=== PATIENT | female | born 1960 | race Caucasian/White ===

== ENCOUNTER 2021-10-28 17:17 | Emergency (ER) | payer MEDICARE, SELFPAY ==
[2021-10-28] VITALS (12 sets, daily range): BP systolic 105–144; BP diastolic 65–89; PULSE 79–87; RESP 17–31; TEMP 36.5; O2SAT 81–99
--- NOTE | 2021-10-28 17:28 | DI.RAD.S_ITS ---
PROCEDURE: XR CHEST 1V INDICATIONS: wheeze, shortness of breath TECHNIQUE: One view of the chest was acquired. COMPARISON: [facility], CT, CT ANGIO CHEST PE, 10/27/2021, 14:57. [facility], CR, XR CHEST 1 VIEW, 10/27/2021, 11:45. FINDINGS: Surgical changes and devices: Lower cervical spine postsurgical change. Lungs and pleura: There is a calcified granuloma in the right upper lung zone. Lingular scars and atelectasis. Lungs are otherwise clear. No pleural effusions or pneumothorax. Mediastinum: Mediastinal contours appear normal. Heart size is normal. Bones and chest wall: No suspicious bony lesions. Overlying soft tissues appear unremarkable. IMPRESSION: No acute cardiopulmonary disease. Dictated by: Scotty Wells M.D. on 10/28/2021 at 18:11 Approved by: Scotty Wells M.D. on 10/28/2021 at 18:12
[2021-10-28] MEDS: ALBUTEROL HFA MDI 60 PUFF/8 GM INHALER 8 PUFF INH (17:41)
[2021-10-28] MEDS: SODIUM CHLORIDE 0.9% 1,000 ML 150 ML IV (17:47)
[2021-10-28] MEDS: methylPREDNISolone 125 MG/2 ML VIAL IV (17:47)
[2021-10-28 17:58] LABS: Add Manual Diff / Slide Review NO; Basophils Absolute Auto 100 /uL (0-100); Basophils Percent Auto 0.5 % (0-2); Eosinophils Absolute Auto 300 /uL (0-450); Eosinophils Percent Auto 1.7 % (2-4); Hematocrit 39.2 % (36-46); Lymphocytes Absolute Auto 1400 /uL (1100-4500); Lymphocytes Percent Auto 9.4 % (25-40); Mean Corpuscular HGB Conc 33.1 % (30-36); Mean Corpuscular Volume 87.6 fL (80-100); Monocytes Absolute Auto 1000 /uL (0-900); Monocytes Percent Auto 6.6 % (3-14); Neutrophils Absolute Auto 12200 /uL (1500-7000); Neutrophils Percent Auto 81.8 % (50-75); Platelet Count 295 X10^3/uL (150-400); Red Blood Cell Count 4.48 X10^6/uL (4.0-5.2); Red Cell Distribution Width 15.1 % (11.6-14.8); White Blood Cell Count 14.9 X10^3/uL (4.5-11.0)
[2021-10-28 18:07] LABS: Alanine Aminotransferase 18 IU/L (<35); Albumin 4.2 g/dL (3.5-5.0); Albumin Globulin Ratio 1.1 (1.0-2.8); Alkaline Phosphatase 98 U/L (38-126); Aspartate Aminotransferase 21 IU/L (14-36); BUN Creatinine Ratio 15.3 (6-22); Bilirubin Total 0.5 mg/dL (0.2-1.3); Blood Urea Nitrogen 13 mg/dL (7-17); Calcium 8.9 mg/dL (8.4-10.2); Carbon Dioxide 26 mmol/L (22-32); Chloride 102 mmol/L (98-107); Creatine Kinase 74 U/L (30-135); Estimated Glomerular Filt Rate > 60 mL/min (>60); Globulin 3.7 g/dL (1.7-4.1); Glucose 141 mg/dL (80-110); HEMOLYSIS < 15 (0-50); Lipase 28 U/L (23-300); Sodium 137 mmol/L (137-145); Total Protein 7.9 g/dL (6.3-8.2)
[2021-10-28 18:19] LABS: NT-proBNP (BNP-Adult 18+) 230 pg/mL (<125); Troponin I < 0.012 ng/mL (0.01-0.034)
--- NOTE | 2021-10-28 18:35 | ED.CHESTPAIN ---
HPI - Chest Pain General Chief Complaint: Chest Pain Stated Complaint: chest pain since tuesday Time Seen by Provider: 10/28/21 17:28 Source: patient Mode of arrival: Wheelchair History of Present Illness HPI narrative: 61-year-old female daily smoker with history of hypothyroid presents for evaluation of anterior chest cramping and wheezing. She has been having relatively similar symptoms off and on since at least . She has had significant workups including stress testing, CT scans and lab workups. She has been seen as recently as yesterday at [facility] had a thorough workup including labs and even a CT scan (working on getting these records currently). She states that she has no clear provocation or palliation of these episodes of cramping that seemed to start in 1 shoulder or the other and then at times radiate across her chest and seem to be associated with difficulty breathing. She has been relatively responsive to steroids and has a referral to Rheumatology tomorrow. Family states there has been some question about the potential of a thrombocytopenia secondary to the Saravanan Saravanan vaccine which she had received prior to all this. She currently is experiencing some improved symptoms when she lays on her left side but not having much in the way of pain and has no fever or chills. She has had no runny nose, sore throat but does have occasional wheezy type cough that sometimes is improved with bronchodilators. Related Data Home Medications Medication Instructions Recorded Confirmed aspirin 81 mg tablet,delayed 81 mg PO DAILY 09/29/18 09/29/18 release cyclobenzaprine 10 mg tablet 10 mg PO BEDTIME 09/29/18 09/29/18 duloxetine 60 mg capsule,delayed 60 mg PO DAILY 09/29/18 09/29/18 release (Cymbalta) levothyroxine 25 mcg tablet 25 mcg PO DAILY 09/29/18 09/29/18 (Synthroid) tizanidine 4 mg tablet 4 mg PO Q6-8H PRN 09/29/18 09/29/18 Previous Rx's Medication Instructions Recorded colchicine 0.6 mg tablet 0.6 mg PO BID #60 tab 10/28/21 indomethacin 25 mg capsule See Rx Instructions .ROUTE 10/28/21 .COMPLEX #91 cap Allergies Allergy/AdvReac Type Severity Reaction Status Date / Time No Known Drug Allergies Allergy Verified 10/28/21 17:38 Review of Systems Review of Systems Narrative: GENERAL: See HPI HEENT: Denies sinus pain, ear pain, sore throat, difficulty swallowing, dizziness. RESPIRATORY: See HPI CARDIOVASCULAR: See HPI GASTROINTESTINAL: Denies nausea, vomiting, abdominal pain, diarrhea, constipation, melena. : Denies dysuria, frequency, incontinence, hematuria, urinary retention. MUSCULOSKELETAL: denies weakness, joint pain, or bony pain SKIN: Denies rash, skin lesions, or other NEUROLOGIC: Denies weakness, headache, numbness, change in speech, confusion, seizures, incoordination. PSYCHIATRIC: No concerning psychosocial issues. 12 point review of systems is negative except for those stated above Patient History Social History Smoking Status: Current every day smoker Smoking Status: Current every day smoker alcohol intake frequency: other Substance Use Type: does not use Exam Narrative Exam Narrative: GENERAL: [] year old patient appears stated age. Well-developed patient, in mild distress. HEAD: Atraumatic. Normocephalic. EYES: Pupils equal round and reactive. Extraocular motions intact. No scleral icterus. No injection or drainage. ENT: Nose without bleeding, purulent drainage. Throat without erythema, tonsillar hypertrophy or exudate. Airway patent. NECK: Trachea midline. Non tender CARDIOVASCULAR: Regular rate and rhythm without murmurs, gallops, or rubs. RESPIRATORY: Clear to auscultation. Breath sounds equal bilaterally. No wheezes, rales, or rhonchi. GASTROINTESTINAL: Abdomen soft, non-tender, nondistended. EXTREMITIES: No edema or joint tenderness. BACK: Nontender without deformity or crepitance. No flank tenderness. NEURO: AOx3. SKIN: No rash or erythema of visible areas Initial Vital Signs Initial Vital Signs: Vital Signs Temperature 97.7 F 10/28/21 17:28 Pulse Rate 86 10/28/21 17:28 Respiratory Rate 17 10/28/21 17:28 Blood Pressure 114/67 10/28/21 17:28 Pulse Oximetry 98 10/28/21 17:28 Course Orders Ordered: ED Orders 10/28/21 17:45 CRP [C-Reactive Protein Quant] Stat Complete Blood Count AUTO DIFF Stat Comprehensive Metabolic Panel Stat ESR [Erythrocyte Sedimentation Rate] Stat Lipase Stat NT-proBNP (BNP-Adult 18+) Stat Troponin & CK Cardiac Panel Stat 10/28/21 17:47 D Dimer Stat Procalcitonin Stat 10/28/21 18:37 EKG-12 Lead Stat 10/28/21 19:20 COVID19 -Nasal RAPID/Pre-Proc Stat Discontinued Medications Albuterol (Albuterol Hfa Mdi 60 Puff/8 Gm Inhaler) 8 puff INH NOW ONE Stop: 10/28/21 17:29 Last Admin: 10/28/21 17:41 Dose: 8 puff Documented by: EBONI Albuterol/Ipratropium (Albuterol/Ipratropium 3 Ml Ampul) 3 ml INH NOW ONE Stop: 10/28/21 17:29 Last Admin: 10/28/21 18:57 Dose: 3 ml Documented by: EBONI Colchicine (Colchicine 0.6 Mg Tablet) 0.6 mg PO NOW ONE Stop: 10/28/21 19:15 Last Admin: 10/28/21 20:03 Dose: 0.6 mg Documented by: [email or web address] Sodium Chloride (Normal Saline 0.9%) 1,000 mls @ 150 mls/hr IV CONT BONNIE Last Admin: 10/28/21 17:47 Dose: 150 mls/hr Documented by: JULIANA Indomethacin (Indomethacin 25 Mg Capsule) 50 mg PO NOW ONE Stop: 10/28/21 19:15 Last Admin: 10/28/21 20:03 Dose: 50 mg Documented by: [email or web address] Methylprednisolone (Methylprednisolone 125 Mg/2 Ml Vial) 125 mg IV NOW ONE Stop: 10/28/21 17:29 Last Admin: 10/28/21 17:47 Dose: 125 mg Documented by: JULIANA Consultations Consultation #1: Discussed case with on-call Cardiology at [facility] ([facility]). We discussed multiple visits, labs, imaging and provocative testing dating back to April. The big picture suggests the evolution of a [id number] pericardial effusion over the past few months as it was not noted on prior echo or CT scan but in a CT scan obtained yesterday at an outside facility it was noted. Additionally the very subtle MO depressions on EKG and historical response to steroids with suggest strongly the diagnosis of pericarditis is our primary focus. Patient will need a 1 month taper of indomethacin and at least 3 months of colchicine 0.6 mg p.o. b.i.d. without any alteration in dosing. Vital Signs Vital signs: Vital Signs - 8 hr 10/28/21 18:57 10/28/21 19:00 10/28/21 19:01 Pulse Rate 80 79 79 Respiratory Rate 20 23 26 H Blood Pressure 130/68 Pulse Oximetry 97 95 95 10/28/21 19:30 10/28/21 20:00 10/28/21 20:15 Pulse Rate 85 87 80 Respiratory Rate 30 H 29 H 23 Blood Pressure 138/78 142/89 H 144/78 H Pulse Oximetry 94 95 94 MDM - Chest Pain Lab Data Result diagrams: 10/28/21 17:45 10/28/21 17:45 Labs: Lab Results 10/28/21 10/28/21 10/28/21 Range/Units 17:45 17:45 17:45 WBC 14.9 H (4.5-11.0) X10^3/uL RBC 4.48 (4.0-5.2) X10^6/uL Hgb 13.0 (12.0-16.0) g/dL Hct 39.2 (36-46) % MCV 87.6 (80-100) fL MCH 29.0 (26-34) PG MCHC 33.1 (30-36) % RDW 15.1 H (11.6-14.8) % Plt Count 295 (150-400) X10^3/uL Neut % (Auto) 81.8 H (50-75) % Lymph % (Auto) 9.4 L (25-40) % [place] % (Auto) 6.6 (3-14) % Eos % (Auto) 1.7 L (2-4) % Baso % (Auto) 0.5 (0-2) % Neut # (Auto) 40364 H (5174-7457) /uL Lymph # (Auto) 1400 (0893-4138) /uL [place] # (Auto) 1000 H (0-900) /uL Eos # (Auto) 300 (0-450) /uL Baso # (Auto) 100 (0-100) /uL ESR 57 H (0-20) MM/HR D-Dimer (<230) ng/mL Sodium 137 (137-145) mmol/L Potassium 4.0 (3.4-5.1) mmol/L Chloride 102 (98-107) mmol/L Carbon Dioxide 26 (22-32) mmol/L BUN 13 (7-17) mg/dL Creatinine 0.85 (0.52-1.04) mg/dL Estimated GFR > 60 (>60) mL/min BUN/Creatinine Ratio 15.3 (6-22) Glucose 141 H (80-110) mg/dL Calcium 8.9 (8.4-10.2) mg/dL Total Bilirubin 0.5 (0.2-1.3) mg/dL AST 21 (14-36) IU/L ALT 18 (<35) IU/L Alkaline Phosphatase 98 (38-126) U/L Total Creatine Kinase 74 (30-135) U/L CK-MB (CK-2) TNP CK-MB (CK-2) Rel Index TNP Troponin I < 0.012 (0.01-0.034) ng/mL C-Reactive Protein (<1.0) mg/dL NT-Pro-B Natriuret Pep 230 H (<125) pg/mL Total Protein 7.9 (6.3-8.2) g/dL Albumin 4.2 (3.5-5.0) g/dL Globulin 3.7 (1.7-4.1) g/dL Albumin/Globulin Ratio 1.1 (1.0-2.8) Lipase 28 (23-300) U/L Procalcitonin (<0.5) ng/mL SARS-CoV-2 (PCR) (Negative) 10/28/21 10/28/21 10/28/21 Range/Units 17:45 17:47 17:47 WBC (4.5-11.0) X10^3/uL RBC (4.0-5.2) X10^6/uL Hgb (12.0-16.0) g/dL Hct (36-46) % MCV (80-100) fL MCH (26-34) PG MCHC (30-36) % RDW (11.6-14.8) % Plt Count (150-400) X10^3/uL Neut % (Auto) (50-75) % Lymph % (Auto) (25-40) % [place] % (Auto) (3-14) % Eos % (Auto) (2-4) % Baso % (Auto) (0-2) % Neut # (Auto) (0287-0579) /uL Lymph # (Auto) (6205-6214) /uL Socorro # (Auto) (0-900) /uL Eos # (Auto) (0-450) /uL Baso # (Auto) (0-100) /uL ESR (0-20) MM/HR D-Dimer 900 H (<230) ng/mL Sodium (137-145) mmol/L Potassium (3.4-5.1) mmol/L Chloride (98-107) mmol/L Carbon Dioxide (22-32) mmol/L BUN (7-17) mg/dL Creatinine (0.52-1.04) mg/dL Estimated GFR (>60) mL/min BUN/Creatinine Ratio (6-22) Glucose (80-110) mg/dL Calcium (8.4-10.2) mg/dL Total Bilirubin (0.2-1.3) mg/dL AST (14-36) IU/L ALT (<35) IU/L Alkaline Phosphatase (38-126) U/L Total Creatine Kinase (30-135) U/L CK-MB (CK-2) CK-MB (CK-2) Rel Index Troponin I (0.01-0.034) ng/mL C-Reactive Protein 17.3 H (<1.0) mg/dL NT-Pro-B Natriuret Pep (<125) pg/mL Total Protein (6.3-8.2) g/dL Albumin (3.5-5.0) g/dL Globulin (1.7-4.1) g/dL Albumin/Globulin Ratio (1.0-2.8) Lipase (23-300) U/L Procalcitonin 0.07 (<0.5) ng/mL SARS-CoV-2 (PCR) (Negative) 10/28/21 Range/Units 19:20 WBC (4.5-11.0) X10^3/uL RBC (4.0-5.2) X10^6/uL Hgb (12.0-16.0) g/dL Hct (36-46) % MCV (80-100) fL MCH (26-34) PG MCHC (30-36) % RDW (11.6-14.8) % Plt Count (150-400) X10^3/uL Neut % (Auto) (50-75) % Lymph % (Auto) (25-40) % [place] % (Auto) (3-14) % Eos % (Auto) (2-4) % Baso % (Auto) (0-2) % Neut # (Auto) (0317-6874) /uL Lymph # (Auto) (5318-9146) /uL [place] # (Auto) (0-900) /uL Eos # (Auto) (0-450) /uL Baso # (Auto) (0-100) /uL ESR (0-20) MM/HR D-Dimer (<230) ng/mL Sodium (137-145) mmol/L Potassium (3.4-5.1) mmol/L Chloride (98-107) mmol/L Carbon Dioxide (22-32) mmol/L BUN (7-17) mg/dL Creatinine (0.52-1.04) mg/dL Estimated GFR (>60) mL/min BUN/Creatinine Ratio (6-22) Glucose (80-110) mg/dL Calcium (8.4-10.2) mg/dL Total Bilirubin (0.2-1.3) mg/dL AST (14-36) IU/L ALT (<35) IU/L Alkaline Phosphatase (38-126) U/L Total Creatine Kinase (30-135) U/L CK-MB (CK-2) CK-MB (CK-2) Rel Index Troponin I (0.01-0.034) ng/mL C-Reactive Protein (<1.0) mg/dL NT-Pro-B Natriuret Pep (<125) pg/mL Total Protein (6.3-8.2) g/dL Albumin (3.5-5.0) g/dL Globulin (1.7-4.1) g/dL Albumin/Globulin Ratio (1.0-2.8) Lipase (23-300) U/L Procalcitonin (<0.5) ng/mL SARS-CoV-2 (PCR) Negative (Negative) [facility] Narrative Medical decision making narrative: Patient presents with waxing and waning episodes of atypical chest pain and associated shortness of breath over the past few months. She has had multiple visits, CT scans, echocardiogram, stress test without a working diagnosis at this point time. She reports that traditionally she does well after a burst or slow taper of steroids but is currently not taking them due to an appointment tomorrow with rheumatology. As noted above, her clinical course would highly suggest pericarditis should be of focus and patient will need long-term treatment of indomethacin and colchicine with appropriate follow-up with primary care and Cardiology. Extensive return precautions discussed and questions answered to her apparent satisfaction Discharge Plan Departure Patient Disposition: Home Clinical Impression: Pericarditis Instructions: DI for Pericarditis Activity Restrictions/Additional Instructions: *You have been diagnosed with [pericarditis, which is an inflammatory condition involving a sac that surrounds your heart. Otherwise, your history physical exam, labs, imaging and EKGs are very reassuring and there is no evidence of heart attack, abnormal platelet count (thrombocytopenia), blood clot or other *What to do: *Please continue to take your regular medications as directed. [x ] New medication prescriptions sent to your pharmacy: [[facility] in [place] ] [ ] New medication written as a paper prescription [ ] No new medications given *Please follow up with your primary care provider in 2-3 days, call for an appointment. Let them know you were seen in the Emergency Department and that we ask that you be seen in follow up. We will electronically transmit a record of today's note if your PCP is in our system * as we discussed the treatment for pericarditis takes many months, I will write 1 month worth of these medications, but keep in mind he will need to be on colchicine for at least 3 months straight without any alteration in dosing or tapering. We generally do not write long-term prescriptions out of the emergency department but I want to cover you for least 1 month to allow for your primary care provider to become involved *If you do not have a primary care provider please contact the [facility] Resource line at [phone]. They will ask some questions about your medical history and help get you set up with a doctor in the community. *Return to Emergency Department if you should have any new, worsening or concerning symptoms, such as [fever greater than 101 F, shaking chills, worsening pain, persistent vomiting or other bothersome symptoms] Prescriptions: New indomethacin 25 mg capsule See Rx Instructions .ROUTE .COMPLEX Qty: 91 0RF Rx Instructions: 50mg PO TID x7, then 50mg PO BID x7, then 25mg PO BID x7 days, then 25mg PO daily x7 #91 colchicine 0.6 mg tablet 0.6 mg PO BID Qty: 60 0RF No Action cyclobenzaprine 10 mg tablet 10 mg PO BEDTIME 0RF tizanidine 4 mg tablet 4 mg PO Q6-8H PRN0RF aspirin 81 mg tablet,delayed release (DR/EC) 81 mg PO DAILY 0RF levothyroxine [Synthroid] 25 mcg tablet 25 mcg PO DAILY 0RF duloxetine [Cymbalta] 60 mg capsule,delayed release(DR/EC) 60 mg PO DAILY 0RF Referrals: Daquan Andersen MD [Primary Care Provider] - Visit Report Forms: Patient Portal/API
[2021-10-28 18:47] LABS: D Dimer 900 ng/mL (<230)
[2021-10-28] MEDS: ALBUTEROL/IPRATROPIUM 3 ML AMPUL INH (18:57)
[2021-10-28 19:05] LABS: Procalcitonin 0.07 ng/mL (<0.5)
[2021-10-28 19:23] LABS: Erythrocyte Sedimentation Rate 57 MM/HR (0-20)
[2021-10-28 19:29] LABS: C-Reactive Protein Quant 17.3 mg/dL (<1.0)
[2021-10-28] MEDS: COLCHICINE 0.6 MG TABLET PO (20:03)
[2021-10-28] MEDS: INDOMETHACIN 25 MG CAPSULE 50 MG PO (20:03)
[2021-10-28 20:38] LABS: COVID19 -Nasal RAPID Negative (Negative)
== END 2021-10-28 20:16 | disposition home or self-care (01) ==
PROVIDERS: Emergency Medicine; Emergency Provider Emergency Medicine; PCP Family Medicine
DX: I31.9 Disease of pericardium, unspecified (principal); Z20.822 Contact with and (suspected) exposure to COVID-19; R94.31 Abnormal electrocardiogram [ECG] [EKG]
CPT/HCPCS: 71045; 80053; 82550; 83690; 83880; 84145; 84484; 85025; 85379; 85651; 86140; 87635; 93005; 93010; 94640; 96374; 99284; C9803; A9270; J2930

== ENCOUNTER → 2021-11-10 15:54 | Outpatient (CLI) | payer MEDICARE, SELFPAY ==
[2021-11-10 17:13] LABS: Add Manual Diff / Slide Review NO; Basophils Absolute Auto 100 /uL (0-100); Basophils Percent Auto 0.8 % (0-2); Eosinophils Absolute Auto 300 /uL (0-450); Hematocrit 37.9 % (36-46); Hemoglobin 12.8 g/dL (12.0-16.0); Lymphocytes Absolute Auto 2100 /uL (1100-4500); Lymphocytes Percent Auto 34.7 % (25-40); Mean Corpuscular HGB Conc 33.7 % (30-36); Monocytes Absolute Auto 400 /uL (0-900); Monocytes Percent Auto 5.7 % (3-14); Neutrophils Absolute Auto 3300 /uL (1500-7000); Neutrophils Percent Auto 53.8 % (50-75); Platelet Count 409 X10^3/uL (150-400); Red Blood Cell Count 4.41 X10^6/uL (4.0-5.2); Red Cell Distribution Width 15.6 % (11.6-14.8); White Blood Cell Count 6.2 X10^3/uL (4.5-11.0)
[2021-11-10 17:37] LABS: D Dimer < 200 ng/mL (<230)
[2021-11-10 17:51] LABS: Alanine Aminotransferase 33 IU/L (<35); Albumin 4.3 g/dL (3.5-5.0); Albumin Globulin Ratio 1.5 (1.0-2.8); Alkaline Phosphatase 94 U/L (38-126); Aspartate Aminotransferase 41 IU/L (14-36); BUN Creatinine Ratio 13.5 (6-22); Bilirubin Total 0.4 mg/dL (0.2-1.3); Blood Urea Nitrogen 12 mg/dL (7-17); C-Reactive Protein Quant < 0.5 mg/dL (<1.0); Calcium 9.1 mg/dL (8.4-10.2); Carbon Dioxide 27 mmol/L (22-32); Chloride 102 mmol/L (98-107); Cholesterol 232 mg/dL (140-199); Creatine Kinase 165 U/L (30-135); Estimated Glomerular Filt Rate > 60 mL/min (>60); Globulin 2.9 g/dL (1.7-4.1); Glucose 116 mg/dL (80-110); HDL Cholesterol 48 mg/dL (40-60); HEMOLYSIS < 15 (0-50); LDL Cholesterol Calculated 158 mg/dL (<100); Potassium 3.7 mmol/L (3.4-5.1); Sodium 140 mmol/L (137-145); Total Protein 7.2 g/dL (6.3-8.2); Triglycerides 130 mg/dL (35-150)
[2021-11-10 18:12] LABS: Erythrocyte Sedimentation Rate 18 MM/HR (0-20)
[2021-11-10 18:21] LABS: TSH w/ Reflex to FT4 1.85 uIU/mL (0.47-4.68)
== END ==
PROVIDERS: PCP Pediatrics; Referring Provider Pediatrics; Visit Provider Pediatrics
DX: I31.9 Disease of pericardium, unspecified (principal); I10 Essential (primary) hypertension; Z13.220 Encounter for screening for lipoid disorders; R06.2 Wheezing; Z72.0 Tobacco use
CPT/HCPCS: 36415; 80053; 80061; 82550; 84443; 85025; 85379; 85651; 86140

== ENCOUNTER → 2021-11-16 16:41 | Outpatient (CLI) | payer MEDICARE, SELFPAY ==
[2021-11-16 17:36] LABS: Creatine Kinase 73 U/L (30-135)
[2021-11-16 17:45] LABS: NT-proBNP (BNP-Adult 18+) 207 pg/mL (<125); Troponin I < 0.012 ng/mL (0.01-0.034)
== END ==
PROVIDERS: PCP Pediatrics; Referring Provider Pediatrics; Visit Provider Pediatrics
DX: R06.00 Dyspnea, unspecified (principal); R74.8 Abnormal levels of other serum enzymes
CPT/HCPCS: 36415; 82550; 83880; 84484

== ENCOUNTER → 2021-11-16 16:55 | Outpatient (CLI) | payer MEDICARE, SELFPAY ==
--- NOTE | 2021-11-16 16:58 | DI.RAD.S_ITS ---
PROCEDURE: XR CHEST 2V INDICATIONS: cough, tobacco use TECHNIQUE: 2 views of the chest were acquired. COMPARISON: [facility], CR, XR CHEST 1 VIEW, 07/21/2021, 14:21. [facility], CR, XR CHEST 1 VIEW, 10/27/2021, 11:45. [facility], CR, XR CHEST 1V, 10/28/2021, 17:36. FINDINGS: Surgical changes and devices: Cervical spine fixation hardware. Lungs and pleura: No acute lung opacities. Scarring in the lingula of left upper lobe is stable. No pleural effusions or pneumothorax. Small calcified granuloma in the periphery of the right lung is stable. Mediastinum: Mediastinal contours are normal. Heart size is normal. Bones and chest wall: No suspicious bony abnormalities. Soft tissues appear unremarkable. IMPRESSION: No acute cardiopulmonary disease process. Dictated by: Domi Dover MD, PhD on 11/17/2021 at 12:40 Approved by: Domi Dover MD, PhD on 11/17/2021 at 12:40
== END ==
PROVIDERS: PCP Pediatrics; Referring Provider Pediatrics; Visit Provider Pediatrics
DX: R06.2 Wheezing (principal); R06.00 Dyspnea, unspecified; R74.8 Abnormal levels of other serum enzymes; Z72.0 Tobacco use
CPT/HCPCS: 36415; 71046; 82550; 83880; 84484; 93005

== ENCOUNTER 2021-11-30 00:27 | Emergency (ER) | payer MEDICARE, SELFPAY ==
[2021-11-30 00:39] VITALS: BP 134/79; PULSE 89; RESP 24; TEMP 36.6; O2SAT 100
[2021-11-30 00:44] LABS: Appearance Urine UA SL CLOUDY; Bilirubin Urine UA NEGATIVE (NEGATIVE); Color Urine UA YELLOW; Glucose Urine UA NEGATIVE (Negative); Ketones Urine UA NEGATIVE (NEGATIVE); Leukocyte Esterase Urine UA NEGATIVE (NEGATIVE); Nitrite Urine UA NEGATIVE (Negative); Occult Blood Urine UA 3+ (Negative); Protein Urine UA TRACE (Negative); Specific Gravity Urine UA 1.025 (1.000-1.035); Urobilinogen Urine UA 0.2 E.U./dL (0.2)
[2021-11-30] MEDS: MORPHINE 4 MG/ML INJ IV (00:44)
--- NOTE | 2021-11-30 00:44 | DI.CT.S_ITS ---
PROCEDURE: CT KIDNEY URETER BLADDER (KUB) INDICATIONS: L flank pain eval for stone TECHNIQUE: Axial sections were acquired from the lung bases to the pubic symphysis. Coronal and sagittal reformats were performed. For radiation dose reduction, the following was used: automated exposure control, adjustment of mA and/or kV according to patient size. COMPARISON: [facility], CT, CT ABDOMEN PELVIS WITH CONTRAST, 04/18/2021, 18:07. FINDINGS: Image quality: Excellent. Lung bases: There is minimal atelectasis. Heart: Heart is normal in size. URINARY: Right Kidney and Ureter: No stones or hydronephrosis. No hydroureter. Left Kidney and Ureter: There is a small 1-2 mm stone within the distal left ureter just proximal to the ureterovesicular junction. There is associated mild left hydroureteronephrosis with mild perinephric stranding. No additional renal stones identified. Bladder: The bladder is nondistended. No stones. ABDOMEN: Liver: Noncontrast evaluation of the liver demonstrates no discrete mass. Gallbladder: Within normal limits without calcified gallstones. Biliary ducts: No biliary ductal dilatation. Pancreas: Unremarkable. Spleen: Normal in size. Adrenal Glands: No adrenal nodules. Stomach and Bowel: Stomach and small bowel loops are normal in caliber and wall thickness. The appendix is normal in appearance. Colonic diverticulosis is present without acute diverticulitis. There is mild segmental wall thickening in the sigmoid colon suggesting sequelae of a mild colitis. Peritoneum: No abnormal intraperitoneal fluid. No free air. Ventral Wall: No hernia. Abdominal Nodes: No retroperitoneal or mesenteric adenopathy by size criteria. Vessels: Aorta and inferior vena cava are normal in size. PELVIS: Pelvic Organs: Unremarkable. Pelvic Nodes: No enlarged lymph nodes. Miscellaneous: No inguinal hernias identified. Bones: Visualized osseous structures demonstrate no suspicious focal lesions. IMPRESSION: 1. Small distal left ureteral stone with mild left hydroureteronephrosis. 2. Colonic diverticulosis without acute diverticulitis. 3. Mild segmental wall thickening in the sigmoid colon suggestive of a mild colitis. Dictated by: Thad Goss M.D. on 11/30/2021 at 1:21 Approved by: Thad Goss M.D. on 11/30/2021 at 1:40
--- NOTE | 2021-11-30 00:45 | ED_ITS ---
HPI - General Adult General Chief complaint: Abdominal Pain Stated complaint: left kidney pain Time Seen by Provider: 11/30/21 00:31 Source: patient Mode of arrival: Ambulatory History of Present Illness HPI narrative: Patient is a 61-year-old female who is here for evaluation of left-sided flank pain that radiates around to her left lower abdomen. Symptoms started a couple days ago. He has had a kidney stone in the past but it was on the right side and that was many years ago. She is not had any vomiting. No fevers. She states that she is having some dysuria and frequency. Related Data Home Medications Medication Instructions Recorded Confirmed aspirin 81 mg tablet,delayed 81 mg PO DAILY 09/29/18 11/10/21 release Lactobacillus acidophilus PO 11/10/21 11/10/21 [Acidophilus] albuterol sulfate 90 mcg/actuation 2 puff inhalation Q4-6H PRN 11/10/21 11/10/21 aerosol inhaler chlorzoxazone 500 mg tablet 500 mg PO TID 11/10/21 11/10/21 escitalopram oxalate 20 mg tablet 20 mg PO DAILY 11/10/21 11/10/21 hydrocodone 5 mg-acetaminophen 325 1 tab PO Q8H 11/10/21 11/10/21 mg tablet ibuprofen 200 mg tablet 200 mg PO Q6H PRN 11/10/21 11/10/21 levothyroxine 125 mcg tablet 125 mcg PO DAILY 11/10/21 11/10/21 (Synthroid) loratadine 10 mg tablet (Claritin) 10 mg PO DAILY 11/10/21 11/10/21 multivitamin 1 tab PO DAILY 11/10/21 11/10/21 nitroglycerin 0.4 mg sublingual 0.4 mg sublingual 11/10/21 11/10/21 tablet soy isoflavone-black cohosh cap PO 11/10/21 11/10/21 root-magnolia bark 155 mg capsule (Estroven) Previous Rx's Medication Instructions Recorded colchicine 0.6 mg tablet 0.6 mg PO BID #60 tabs 10/28/21 indomethacin 25 mg capsule See Rx Instructions .Route 10/28/21 .COMPLEX #91 caps amoxicillin 500 mg-potassium 1 tab PO BID presumed bronchitis 11/10/21 clavulanate 125 mg tablet #20 tabs (Augmentin) prednisone 10 mg tablet 20 mg PO DAILY wheezing/airway 11/16/21 spasm #30 tabs hydrocodone 5 mg-acetaminophen 325 1 tab PO Q6H PRN pain #7 tabs 11/30/21 mg tablet ondansetron 4 mg disintegrating 4 mg PO Q6H PRN nausea and 11/30/21 tablet vomiting #7 tabs Allergies Allergy/AdvReac Type Severity Reaction Status Date / Time No Known Drug Allergies Allergy Verified 11/10/21 14:18 Review of Systems Constitutional Constitutional: Reports system reviewed and no additional complaints, except as documented Gastrointestinal Gastrointestinal: Reports system reviewed and no additional complaints, except as documented Genitourinary Genitourinary: Reports system reviewed and no additional complaints, except as documented Integumentary/Breasts Skin/Breast: Reports system reviewed and no additional complaints, except as documented Patient History Medical History CARRIZALES (dyspnea on exertion) Elevated CK Tobacco use Wheezing Social History Smoking Status: Current every day smoker Tobacco: How many years used: 40 alcohol intake: current (couple drinks per month ) substance use type: marijuana (Daily ) Smoking Status: Current every day smoker alcohol intake frequency: other Substance Use Type: does not use Exam Initial Vital Signs Initial Vital Signs: Vital Signs Temperature 97.8 F 11/30/21 00:39 Pulse Rate 89 11/30/21 00:39 Respiratory Rate 24 11/30/21 00:39 Blood Pressure 134/79 11/30/21 00:39 Pulse Oximetry 100 11/30/21 00:39 Oxygen Delivery Method 11/30/21 00:39 Const General: cooperative and healthy appearing Resp Effort & Inspection: normal respiratory effort Cardio Rate: regular rate GI Palpation: soft and No tender Skin General: no rashes or lesions noted Neuro General: patient alert, patient awake and moves all extremities Extrem General: normal to inspection and capillary refill normal Course Orders Ordered: ED Orders 11/30/21 00:35 Urinalysis and Microscopic Stat Urine Culture Stat 11/30/21 00:40 Basic Metabolic Panel Stat Complete Blood Count AUTO DIFF Stat 11/30/21 00:44 CT kidney ureter bladder (KUB) Stat Discontinued Medications Hydrocodone Bitart/Acetaminophen (Hydrocodone/Acet 5/325 Prepack) 1 bottle MISC SEEINSTR ONE Stop: 11/30/21 01:50 Last Admin: 11/30/21 01:55 Dose: 1 bottle Documented By: DANYA Morphine Sulfate (Morphine 4 Mg/Ml Inj) 4 mg IV NOW ONE Stop: 11/30/21 00:40 Last Admin: 11/30/21 00:44 Dose: 4 mg Documented By: DANYA Ondansetron HCl (Ondansetron 4 Mg Odt Prepack) 1 bottle MISC SEEINSTR ONE Stop: 11/30/21 01:50 Last Admin: 11/30/21 01:55 Dose: 1 bottle Documented By: DANYA Vital Signs Vital signs: Vital Signs - 8 hr 11/30/21 00:39 Temperature 97.8 F Pulse Rate 89 Respiratory Rate 24 Blood Pressure 134/79 Pulse Oximetry 100 Oxygen Delivery Method Room Air Medical Decision Making Lab Data Lab results reviewed: Yes I reviewed the patient's lab results. Result diagrams: 11/30/21 00:40 11/30/21 00:40 Labs: Lab Results 11/30/21 11/30/21 11/30/21 Range/Units 00:35 00:40 00:40 WBC 9.9 (4.5-11.0) X10^3/uL RBC 4.42 (4.0-5.2) X10^6/uL Hgb 13.1 (12.0-16.0) g/dL Hct 39.0 (36-46) % MCV 88.1 (80-100) fL MCH 29.5 (26-34) PG MCHC 33.5 (30-36) % RDW 15.8 H (11.6-14.8) % Plt Count 272 (150-400) X10^3/uL Neut % (Auto) 65.8 (50-75) % Lymph % (Auto) 21.1 L (25-40) % [place] % (Auto) 6.7 (3-14) % Eos % (Auto) 3.6 (2-4) % Baso % (Auto) 2.8 H (0-2) % Neut # (Auto) 6500 (6474-2176) /uL Lymph # (Auto) 2100 (5760-0423) /uL [place] # (Auto) 700 (0-900) /uL Eos # (Auto) 400 (0-450) /uL Baso # (Auto) 300 H (0-100) /uL Sodium 141 (137-145) mmol/L Potassium 3.3 L (3.4-5.1) mmol/L Chloride 104 (98-107) mmol/L Carbon Dioxide 27 (22-32) mmol/L BUN 21 H (7-17) mg/dL Creatinine 1.06 H (0.52-1.04) mg/dL Estimated GFR 60 (>60) mL/min BUN/Creatinine Ratio 19.8 (6-22) Glucose 87 (80-110) mg/dL Calcium 9.1 (8.4-10.2) mg/dL Urine Color Yellow Urine Appearance Sl cloudy Urine pH 5.5 (4.5-8.0) Ur Specific [place] 1.025 (1.000-1.035) Urine Protein Trace H (Negative) Urine Glucose (UA) Negative (Negative) g/dL Urine Ketones Negative (NEGATIVE) Urine Occult Blood 3+ H (Negative) Urine Nitrate Negative (Negative) Urine Bilirubin Negative (NEGATIVE) Urine Urobilinogen 0.2 (0.2) E.U./dL Ur Leukocyte Esterase Negative (NEGATIVE) Urine RBC 30-100/hpf H (0-5/HPF) Urine WBC 0-1/hpf (0-5/HPF) Ur Squamous Epith Cells 0-1 /hpf (0-5/HPF) Urine Bacteria Few (2-10) H (None) Hyaline Casts 0-1/lpf (None) Urine Mucus 1+ H (Negative) Ur Culture Indicated? Cult not indicated Imaging Data CT scan - abdomen/pelvis: Radiologist's Impression: [address] [address] [address] Scan Report Signed Patient: Sole Ramos MR#: [id number] : 1960 Acct:[id number] Age/Sex: 61 / F Date of Service: 11/30/21 Loc: ED Accession Number: [id number] ?? Procedure: CT kidney ureter bladder (KUB) Ordering Provider: Calixto Mcclure D.O. PROCEDURE:? CT KIDNEY URETER BLADDER (KUB) ? INDICATIONS:? L flank pain eval for stone ? TECHNIQUE:? Axial sections were acquired from the lung bases to the pubic symphysis.? Coronal and sagittal reformats were performed.? For radiation dose reduction, the following was used: ?automated exposure control, adjustment of mA and/or kV according to patient size.? ? COMPARISON:? [facility], CT, CT ABDOMEN PELVIS WITH CONTRAST, 04/18/2021, 18:07. ? FINDINGS:? Image quality:? Excellent.? ? Lung bases:? There is minimal atelectasis.? ? Heart:? Heart is normal in size. ? URINARY: Right Kidney and Ureter: ? No stones or hydronephrosis.? No hydroureter.? ? Left Kidney and Ureter: ? There is a small 1-2 mm stone within the distal left ureter just proximal to the ureterovesicular junction.? There is associated mild left hydroureteronephrosis with mild perinephric stranding.? No additional renal st ones identified. ? Bladder:? The bladder is nondistended.? No stones. ? ? ? ABDOMEN: Liver:? Noncontrast evaluation of the liver demonstrates no discrete? mass. Gallbladder:? Within normal limits without calcified gallstones.? ? Biliary ducts:? No biliary ductal dilatation.? ? Pancreas:? Unremarkable.? ? Spleen:? Normal in size.? ? Adrenal Glands:? No adrenal nodules.? ? ? Stomach and Bowel:? Stomach and small bowel loops are normal in caliber and wall thickness.? The appendix is normal in appearance.? Colonic diverticulosis is present without acute diverticulitis.? There is mild segmental wall thickening in the sigmoid colon suggesting sequelae of a mild colitis.? Peritoneum:? No abnormal intraperitoneal fluid.? No free air.? ? Ventral Wall: ? No hernia.? Abdominal Nodes:? No retroperitoneal or mesenteric adenopathy by size criteria.? Vessels:? Aorta and inferior vena cava are normal in size.? ? PELVIS: Pelvic Organs:? Unremarkable.? ? Pelvic Nodes: No enlarged lymph nodes.? Miscellaneous: No inguinal hernias identified. ? ? ? Bones:? Visualized osseous structures demonstrate no suspicious focal lesions. IMPRESSION:? ? 1. Small distal left ureteral stone with mild left hydroureteronephrosis. ? 2. Colonic diverticulosis without acute diverticulitis. ? 3. Mild segmental wall thickening in the sigmoid colon suggestive of a mild colitis.? ? Dictated by: Thad Goss M.D. on 11/30/2021 at 1:21 ? ? Approved by: Thad Goss M.D. on 11/30/2021 at 1:40?? [facility] Narrative Medical decision making narrative: Patient does have minimal tenderness to palpation left side of her abdomen. CT scan does show left distal ureteral stone which is consistent with the discomfort that she is having. Urine does have bacteria but no white blood cells. We will wait for urine culture before treating with any antibiotics. Kidney function is unremarkable. I did discuss the findings of the CT scan with the patient. Was sent home with symptom treatment. She was given return precautions. She expressed understanding and agreement with plan. Discharge Plan Departure Patient Disposition: Home Clinical Impression: Kidney stone on left side Instructions: DI for Kidney Stones Activity Restrictions/Additional Instructions: The CT scan did show a kidney stone on the left side. I suspect that you will pass this within the next couple days. Contact your primary doctor for follow- up. Return to the emergency department for any new or worsening symptoms. Prescriptions: New ondansetron 4 mg tablet,disintegrating 4 mg PO Q6H PRN (Reason: nausea and vomiting) Qty: 7 0RF hydrocodone-acetaminophen 5-325 mg tablet 1 tab PO Q6H PRN (Reason: pain) Qty: 7 0RF No Action aspirin 81 mg tablet,delayed release (DR/EC) 81 mg PO DAILY prednisone 10 mg tablet 20 mg PO DAILY Qty: 30 1RF Rx Instructions: Continue 20mg daily and will begin wean when see you next week albuterol sulfate 90 mcg/actuation HFA aerosol inhaler 2 puff inhalation Q4-6H PRN Lactobacillus acidophilus [Acidophilus] PO chlorzoxazone 500 mg tablet 500 mg PO TID escitalopram oxalate 20 mg tablet 20 mg PO DAILY levothyroxine [Synthroid] 125 mcg tablet 125 mcg PO DAILY Estroven 155 mg capsule PO hydrocodone-acetaminophen 5-325 mg tablet 1 tab PO Q8H Label Comments: TAKE 1 TABLET BY MOUTH EVERY 8 HOURS NEEDED FOR SEVERE PAIN ibuprofen 200 mg tablet 200 mg PO Q6H PRN loratadine [Claritin] 10 mg tablet 10 mg PO DAILY multivitamin Tablet 1 tab PO DAILY nitroglycerin 0.4 mg tablet, sublingual 0.4 mg sublingual Label Comments: PLACE 1 TABLET UNDER THE TONGUE EVERY 5 MINUTES NEEDED FOR CHEST PAIN amoxicillin-pot clavulanate [Augmentin] 500-125 mg tablet 1 tab PO BID Qty: 20 0RF indomethacin 25 mg capsule See Rx Instructions .ROUTE .COMPLEX Qty: 91 0RF Hold Instructions: on pred Rx Instructions: 50mg PO TID x7, then 50mg PO BID x7, then 25mg PO BID x7 days, then 25mg PO daily x7 #91 colchicine 0.6 mg tablet 0.6 mg PO BID Qty: 60 0RF Referrals: Demetrius Rollins MD [Primary Care Provider] - Visit Report Forms: Patient Portal/API
[2021-11-30 00:46] LABS: pH Urine UA 5.5 (4.5-8.0)
[2021-11-30 00:47] LABS: Bacteria Urine Few (2-10); Culture Indicated Urine Cult Not Indicated; Hyaline Casts Urine 0-1/LPF; Mucus Urine 1+ (Negative); RBC Urine 30-100/HPF (0-5/HPF); Squamous Epithelial Cell Urine 0-1 /HPF (0-5/HPF); WBC Urine 0-1/HPF (0-5/HPF)
[2021-11-30 00:51] LABS: Add Manual Diff / Slide Review NO; Basophils Absolute Auto 300 /uL (0-100); Basophils Percent Auto 2.8 % (0-2); Eosinophils Absolute Auto 400 /uL (0-450); Eosinophils Percent Auto 3.6 % (2-4); Hemoglobin 13.1 g/dL (12.0-16.0); Lymphocytes Absolute Auto 2100 /uL (1100-4500); Lymphocytes Percent Auto 21.1 % (25-40); Mean Corpuscular HGB Conc 33.5 % (30-36); Mean Corpuscular Hemoglobin 29.5 PG (26-34); Mean Corpuscular Volume 88.1 fL (80-100); Monocytes Absolute Auto 700 /uL (0-900); Monocytes Percent Auto 6.7 % (3-14); Neutrophils Absolute Auto 6500 /uL (1500-7000); Neutrophils Percent Auto 65.8 % (50-75); Platelet Count 272 X10^3/uL (150-400); Red Blood Cell Count 4.42 X10^6/uL (4.0-5.2); Red Cell Distribution Width 15.8 % (11.6-14.8); White Blood Cell Count 9.9 X10^3/uL (4.5-11.0)
[2021-11-30 00:56] LABS: BUN Creatinine Ratio 19.8 (6-22); Blood Urea Nitrogen 21 mg/dL (7-17); Calcium 9.1 mg/dL (8.4-10.2); Carbon Dioxide 27 mmol/L (22-32); Chloride 104 mmol/L (98-107); Estimated Glomerular Filt Rate 60 mL/min (>60); Glucose 87 mg/dL (80-110); HEMOLYSIS < 15 (0-50); Potassium 3.3 mmol/L (3.4-5.1); Sodium 141 mmol/L (137-145)
[2021-11-30] MEDS: ONDANSETRON 4 MG ODT PREPACK 1 BOTTLE MISC (01:55)
[2021-11-30] MEDS: HYDROCODONE/ACET 5/325 PREPACK 1 BOTTLE MISC (01:55)
== END 2021-11-30 02:00 | disposition home or self-care (01) ==
PROVIDERS: Emergency Provider Emergency Medicine; PCP Pediatrics
DX: N20.0 Calculus of kidney (principal)
CPT/HCPCS: 36415; 74176; 80048; 81001; 85025; 87086; 96374; 99284; J2270

== ENCOUNTER 2021-12-09 12:27 | Emergency (ER) | payer MEDICARE, SELFPAY ==
[2021-12-09 12:49] VITALS: BP 161/97; PULSE 73; RESP 16; TEMP 36.5; O2SAT 97; BMI 26.6
--- NOTE | 2021-12-09 12:49 | DI.RAD.S_ITS ---
PROCEDURE: XR CHEST 1V INDICATIONS: chest pain TECHNIQUE: One view of the chest was acquired. COMPARISON: [facility], CR, XR CHEST 2V, 11/16/2021, 16:50. FINDINGS: Surgical changes and devices: None. Lungs and pleura: Lungs are clear. No pleural effusions or pneumothorax. Mediastinum: Mediastinal contours appear normal. Heart size is normal. Bones and chest wall: No suspicious bony lesions. Overlying soft tissues appear unremarkable. IMPRESSION: No acute cardiopulmonary abnormality. Dictated by: Maxwell Castellanos M.D. on 12/09/2021 at 13:18 Approved by: Maxwell Castellanos M.D. on 12/09/2021 at 13:18
[2021-12-09 12:58] LABS: Add Manual Diff / Slide Review NO; Basophils Absolute Auto 100 /uL (0-100); Basophils Percent Auto 0.6 % (0-2); Eosinophils Absolute Auto 300 /uL (0-450); Eosinophils Percent Auto 2.8 % (2-4); Hemoglobin 13.9 g/dL (12.0-16.0); INR 0.9 (0.9-1.3); Lymphocytes Absolute Auto 2000 /uL (1100-4500); Mean Corpuscular HGB Conc 33.1 % (30-36); Mean Corpuscular Hemoglobin 29.2 PG (26-34); Mean Corpuscular Volume 88.1 fL (80-100); Monocytes Absolute Auto 700 /uL (0-900); Monocytes Percent Auto 6.4 % (3-14); Neutrophils Absolute Auto 8500 /uL (1500-7000); Neutrophils Percent Auto 73.2 % (50-75); Platelet Count 307 X10^3/uL (150-400); Prothrombin Time 10.3 SECONDS (10.1-12.7); Red Blood Cell Count 4.76 X10^6/uL (4.0-5.2); Red Cell Distribution Width 15.7 % (11.6-14.8); White Blood Cell Count 11.7 X10^3/uL (4.5-11.0)
[2021-12-09 13:00] LABS: PTT Partial Thromboplastin Tim 36 SECONDS (26.4-36.2)
[2021-12-09 13:09] LABS: Alanine Aminotransferase 20 IU/L (<35); Albumin 4.6 g/dL (3.5-5.0); Albumin Globulin Ratio 1.5 (1.0-2.8); Alkaline Phosphatase 96 U/L (38-126); Aspartate Aminotransferase 29 IU/L (14-36); BUN Creatinine Ratio 14.1 (6-22); Bilirubin Total 0.3 mg/dL (0.2-1.3); Blood Urea Nitrogen 12 mg/dL (7-17); Calcium 8.9 mg/dL (8.4-10.2); Carbon Dioxide 30 mmol/L (22-32); Chloride 102 mmol/L (98-107); Creatine Kinase 89 U/L (30-135); Estimated Glomerular Filt Rate > 60 mL/min (>60); Globulin 3.1 g/dL (1.7-4.1); Glucose 98 mg/dL (80-110); HEMOLYSIS < 15 (0-50); Lipase 75 U/L (23-300); Magnesium 1.9 mg/dL (1.6-2.3); Potassium 3.6 mmol/L (3.4-5.1); Sodium 140 mmol/L (137-145); Total Protein 7.7 g/dL (6.3-8.2)
[2021-12-09 13:20] LABS: Troponin I < 0.012 ng/mL (0.01-0.034)
[2021-12-09 13:36] VITALS: BP 128/75; PULSE 72; RESP 16; O2SAT 100
--- NOTE | 2021-12-09 14:29 | ED.CHESTPAIN ---
HPI - Chest Pain General Chief Complaint: Chest Pain Stated Complaint: chest pain/jaw pain Time Seen by Provider: 12/09/21 13:00 History of Present Illness HPI narrative: The patient is a 61-year-old female history of kidney stones and atypical chest pain presenting today with chest discomfort. She states that since April she has had chest discomfort off and on. However she has had it twice in the last 5 days which is completely abnormal. Today she was sitting on her couch when she got severe sudden his chest discomfort and then had associated jaw discomfort as well. It lasted for about 1 hour. She has nitroglycerin she took 2 of them on resolved when she got to the ED. She said she felt a little dizzy and lightheaded upon arrival to the ER. His she is not short of breath. She said that she had an echocardiogram done last week she is waiting to see her provider about the results. She says she even had a stress test as well. She says she intermittently has these episodes however 2 in 5 days is increased. She says it is not worse with exertion. She does take an aspirin daily. And she remains chest pain free. Related Data Home Medications Medication Instructions Recorded Confirmed aspirin 81 mg tablet,delayed 81 mg PO DAILY 09/29/18 11/10/21 release Lactobacillus acidophilus PO 11/10/21 11/10/21 [Acidophilus] albuterol sulfate 90 mcg/actuation 2 puff inhalation Q4-6H PRN 11/10/21 11/10/21 aerosol inhaler chlorzoxazone 500 mg tablet 500 mg PO TID 11/10/21 11/10/21 escitalopram oxalate 20 mg tablet 20 mg PO DAILY 11/10/21 11/10/21 hydrocodone 5 mg-acetaminophen 325 1 tab PO Q8H 11/10/21 11/10/21 mg tablet ibuprofen 200 mg tablet 200 mg PO Q6H PRN 11/10/21 11/10/21 levothyroxine 125 mcg tablet 125 mcg PO DAILY 11/10/21 11/10/21 (Synthroid) loratadine 10 mg tablet (Claritin) 10 mg PO DAILY 11/10/21 11/10/21 multivitamin 1 tab PO DAILY 11/10/21 11/10/21 nitroglycerin 0.4 mg sublingual 0.4 mg sublingual 11/10/21 11/10/21 tablet soy isoflavone-black cohosh cap PO 11/10/21 11/10/21 root-magnolia bark 155 mg capsule (Estroven) Previous Rx's Medication Instructions Recorded colchicine 0.6 mg tablet 0.6 mg PO BID #60 tabs 10/28/21 indomethacin 25 mg capsule See Rx Instructions .Route 10/28/21 .COMPLEX #91 caps prednisone 10 mg tablet 20 mg PO DAILY wheezing/airway 11/16/21 spasm #30 tabs hydrocodone 5 mg-acetaminophen 325 1 tab PO Q6H PRN pain #7 tabs 11/30/21 mg tablet ondansetron 4 mg disintegrating 4 mg PO Q6H PRN nausea and 11/30/21 tablet vomiting #7 tabs isosorbide mononitrate 30 mg 30 mg PO DAILY #30 tabs 12/09/21 tablet,extended release 24 hr Allergies Allergy/AdvReac Type Severity Reaction Status Date / Time No Known Drug Allergies Allergy Verified 11/10/21 14:18 Review of Systems Review of Systems Narrative: GENERAL: Denies chills, fatigue, malaise, fever, sweats, travel HEENT: Denies sinus pain, ear pain, sore throat, difficulty swallowing, neck pain RESPIRATORY: Denies dyspnea, cough, wheezing, hemoptysis, sputum. CARDIOVASCULAR: See HPI GASTROINTESTINAL: Denies nausea, vomiting, abdominal pain, diarrhea, constipation, melena. : Denies dysuria, frequency, incontinence, hematuria, urinary retention, flank pain. MUSCULOSKELETAL: Denies weakness, joint pain, or bony pain SKIN: No rash, no erythema, no pruritus NEUROLOGIC: Denies weakness, dizziness, headache, numbness, change in speech, confusion PSYCHIATRIC: No concerning psychosocial issues. 12 point review of systems is negative except for those stated above and HPI Patient History Medical History CARRIZALES (dyspnea on exertion) Elevated CK Tobacco use Wheezing Social History Smoking Status: Current every day smoker Tobacco: How many years used: 40 alcohol intake: current (couple drinks per month ) substance use type: marijuana (Daily ) Smoking Status: Current every day smoker alcohol intake frequency: other Substance Use Type: does not use Exam Initial Vital Signs Initial Vital Signs: Vital Signs Temperature 97.7 F 12/09/21 12:49 Pulse Rate 73 12/09/21 12:49 Respiratory Rate 16 12/09/21 12:49 Blood Pressure 161/97 H 12/09/21 12:49 Pulse Oximetry 97 12/09/21 12:49 Oxygen Delivery Method 12/09/21 12:49 Course Orders Ordered: ED Orders 12/09/21 12:40 Complete Blood Count AUTO DIFF Stat Comprehensive Metabolic Panel Stat Lipase Stat Magnesium Stat Partial Thromboplastin Time Stat Prothrombin Time INR Stat Troponin & CK Cardiac Panel Stat 12/09/21 12:49 XR chest 1V Stat 12/09/21 15:13 Trop I [Troponin I] Stat 12/09/21 16:28 EKG-12 Lead Routine Discontinued Medications Isosorbide Mononitrate (Isosorbide Mononitrate Er 30 Mg Tablet) 30 mg PO NOW ONE Stop: 12/09/21 16:25 Last Admin: 12/09/21 16:35 Dose: 30 mg Documented By: NR Vital Signs Vital signs: Vital Signs - 8 hr 12/09/21 12:49 12/09/21 13:36 12/09/21 16:45 Temperature 97.7 F Pulse Rate 73 72 83 Respiratory Rate 16 16 18 Blood Pressure 161/97 H 128/75 127/71 Pulse Oximetry 97 100 97 Oxygen Delivery Method Room Air Room Air Room Air MDM - Chest Pain Lab Data Result diagrams: 12/09/21 12:40 12/09/21 12:40 Labs: Lab Results 12/09/21 12/09/21 12/09/21 Range/Units 12:40 12:40 12:40 WBC 11.7 H (4.5-11.0) X10^3/uL RBC 4.76 (4.0-5.2) X10^6/uL Hgb 13.9 (12.0-16.0) g/dL Hct 42.0 (36-46) % MCV 88.1 (80-100) fL MCH 29.2 (26-34) PG MCHC 33.1 (30-36) % RDW 15.7 H (11.6-14.8) % Plt Count 307 (150-400) X10^3/uL Neut % (Auto) 73.2 (50-75) % Lymph % (Auto) 17.0 L (25-40) % [place] % (Auto) 6.4 (3-14) % Eos % (Auto) 2.8 (2-4) % Baso % (Auto) 0.6 (0-2) % Neut # (Auto) 8500 H (8764-4076) /uL Lymph # (Auto) 2000 (6688-7214) /uL [place] # (Auto) 700 (0-900) /uL Eos # (Auto) 300 (0-450) /uL Baso # (Auto) 100 (0-100) /uL PT 10.3 (10.1-12.7) SECONDS INR 0.9 (0.9-1.3) APTT 36 (26.4-36.2) SECONDS Sodium 140 (137-145) mmol/L Potassium 3.6 (3.4-5.1) mmol/L Chloride 102 (98-107) mmol/L Carbon Dioxide 30 (22-32) mmol/L BUN 12 (7-17) mg/dL Creatinine 0.85 (0.52-1.04) mg/dL Estimated GFR > 60 (>60) mL/min BUN/Creatinine Ratio 14.1 (6-22) Glucose 98 (80-110) mg/dL Calcium 8.9 (8.4-10.2) mg/dL Magnesium 1.9 (1.6-2.3) mg/dL Total Bilirubin 0.3 (0.2-1.3) mg/dL AST 29 (14-36) IU/L ALT 20 (<35) IU/L Alkaline Phosphatase 96 (38-126) U/L Total Creatine Kinase 89 (30-135) U/L CK-MB (CK-2) TNP CK-MB (CK-2) Rel Index TNP Troponin I < 0.012 (0.01-0.034) ng/mL Total Protein 7.7 (6.3-8.2) g/dL Albumin 4.6 (3.5-5.0) g/dL Globulin 3.1 (1.7-4.1) g/dL Albumin/Globulin Ratio 1.5 (1.0-2.8) Lipase 75 (23-300) U/L // Range/Units 15:13 WBC (4.5-11.0) X10^3/uL RBC (4.0-5.2) X10^6/uL Hgb (12.0-16.0) g/dL Hct (36-46) % MCV (80-100) fL MCH (26-34) PG MCHC (30-36) % RDW (11.6-14.8) % Plt Count (150-400) X10^3/uL Neut % (Auto) (50-75) % Lymph % (Auto) (25-40) % [place] % (Auto) (3-14) % Eos % (Auto) (2-4) % Baso % (Auto) (0-2) % Neut # (Auto) (6242-8893) /uL Lymph # (Auto) (0255-5749) /uL [place] # (Auto) (0-900) /uL Eos # (Auto) (0-450) /uL Baso # (Auto) (0-100) /uL PT (10.1-12.7) SECONDS INR (0.9-1.3) APTT (26.4-36.2) SECONDS Sodium (137-145) mmol/L Potassium (3.4-5.1) mmol/L Chloride (98-107) mmol/L Carbon Dioxide (22-32) mmol/L BUN (7-17) mg/dL Creatinine (0.52-1.04) mg/dL Estimated GFR (>60) mL/min BUN/Creatinine Ratio (6-22) Glucose (80-110) mg/dL Calcium (8.4-10.2) mg/dL Magnesium (1.6-2.3) mg/dL Total Bilirubin (0.2-1.3) mg/dL AST (14-36) IU/L ALT (<35) IU/L Alkaline Phosphatase (38-126) U/L Total Creatine Kinase (30-135) U/L CK-MB (CK-2) CK-MB (CK-2) Rel Index Troponin I < 0.012 (0.01-0.034) ng/mL Total Protein (6.3-8.2) g/dL Albumin (3.5-5.0) g/dL Globulin (1.7-4.1) g/dL Albumin/Globulin Ratio (1.0-2.8) Lipase (23-300) U/L Imaging Data Chest x-ray: Radiologist's Impression: XRay Report Signed Patient: Snellenberg,Sole A MR#: [id number] : 1960 Acct:[id number] Age/Sex: 61 / F Date of Service: 12/09/21 Loc: ED Accession Number: [id number] ?? Procedure: XR chest 1V Ordering Provider: Olga Winslow D.O. PROCEDURE:? XR CHEST 1V ? INDICATIONS:? chest pain ? TECHNIQUE:? One view of the chest was acquired.? ? COMPARISON:? [facility], , XR CHEST 2V, 11/16/2021, 16:50. ? FINDINGS:? ? Surgical changes and devices:? None.? ? Lungs and pleura:? Lungs are clear.? No pleural effusions or pneumothorax.? ? Mediastinum:? Mediastinal contours appear normal.? Heart size is normal.? ? Bones and chest wall:? No suspicious bony lesions.? Overlying soft tissues appear unremarkable.? ? IMPRESSION:? No acute cardiopulmonary abnormality. ? ? ? Dictated by: Maxwell Castellanos M.D. on 12/09/2021 at 13:18 ? ? ECG Data Interpretation: EKG 1. Normal sinus rhythm rate 74 [place] interval 132 QRS 84 QTC 457 T-wave inversions noted in V2 no STChanges similar to previous EKG 2. Sinus rhythm rate 72 similar to prior no ischemic changes MDM Narrative Medical decision making narrative: Patient is 61-year-old smoker presenting with concerned chest pain. However she has an echocardiogram last week which was normal. She had a stress test April 2021 which is also normal. I discussed case with Dr. Hahn Cardiology she has 2- troponins normal EKG. He states that she thinks this is probably a vasospasm from smoking. Recommend Imdur 30 mg once daily also needs a outpatient CT coronary angiogram at [facility]. This can be ordered by PCP. Discharge Plan Departure Patient Disposition: Home Clinical Impression: Atypical chest pain Instructions: DI for Acute Coronary Syndrome Activity Restrictions/Additional Instructions: *You have been diagnosed with acute coronary syndrome, probable vasospasm *What to do: At this time I did discuss case with Dr. Hardy a assistant warehouse manager. He recommends an outpatient CT coronary angiogram at [facility] in [place] *Continue to take medications as directed Imdur 30 mg once a day sent to [facility] *Follow up with your primary care provider in 2-3 days or call [phone] Hahn office to schedule follow-up appointment *Return to ER if you should have increasing chest pain, shortness of breath or any new, worsening or concerning symptoms Prescriptions: New isosorbide mononitrate 30 mg tablet extended release 24 hr 30 mg PO DAILY Qty: 30 0RF No Action aspirin 81 mg tablet,delayed release (DR/EC) 81 mg PO DAILY prednisone 10 mg tablet 20 mg PO DAILY Qty: 30 1RF Rx Instructions: Continue 20mg daily and will begin wean when see you next week albuterol sulfate 90 mcg/actuation HFA aerosol inhaler 2 puff inhalation Q4-6H PRN Lactobacillus acidophilus [Acidophilus] PO chlorzoxazone 500 mg tablet 500 mg PO TID escitalopram oxalate 20 mg tablet 20 mg PO DAILY levothyroxine [Synthroid] 125 mcg tablet 125 mcg PO DAILY Estroven 155 mg capsule PO hydrocodone-acetaminophen 5-325 mg tablet 1 tab PO Q8H Label Comments: TAKE 1 TABLET BY MOUTH EVERY 8 HOURS NEEDED FOR SEVERE PAIN ibuprofen 200 mg tablet 200 mg PO Q6H PRN loratadine [Claritin] 10 mg tablet 10 mg PO DAILY multivitamin Tablet 1 tab PO DAILY nitroglycerin 0.4 mg tablet, sublingual 0.4 mg sublingual Label Comments: PLACE 1 TABLET UNDER THE TONGUE EVERY 5 MINUTES NEEDED FOR CHEST PAIN ondansetron 4 mg tablet,disintegrating 4 mg PO Q6H PRN (Reason: nausea and vomiting) Qty: 7 0RF hydrocodone-acetaminophen 5-325 mg tablet 1 tab PO Q6H PRN (Reason: pain) Qty: 7 0RF indomethacin 25 mg capsule See Rx Instructions .ROUTE .COMPLEX Qty: 91 0RF Hold Instructions: on pred Rx Instructions: 50mg PO TID x7, then 50mg PO BID x7, then 25mg PO BID x7 days, then 25mg PO daily x7 #91 colchicine 0.6 mg tablet 0.6 mg PO BID Qty: 60 0RF Referrals: David Hahn MD [Physician] - Demetrius Rollins MD [Primary Care Provider] - Visit Report Forms: Patient Portal/API
[2021-12-09 15:43] LABS: Troponin I < 0.012 ng/mL (0.01-0.034)
[2021-12-09] MEDS: ISOSORBIDE MONONITRATE ER 30 MG TABLET PO (16:35)
[2021-12-09 16:45] VITALS: BP 127/71; PULSE 83; RESP 18; O2SAT 97
== END 2021-12-09 16:46 | disposition home or self-care (01) ==
PROVIDERS: Emergency Provider Emergency Medicine; PCP Pediatrics
DX: R07.89 Other chest pain (principal)
CPT/HCPCS: 36415; 71045; 80053; 82550; 83690; 83735; 84484; 85025; 85610; 85730; 93005; 93010; 99284

== ENCOUNTER → 2021-12-17 11:19 | Outpatient (CLI) | payer MEDICARE, SELFPAY | PROVIDERS: PCP Pediatrics; Referring Provider Pediatrics; Visit Provider Pediatrics | DX: R07.89 Other chest pain (principal) ==

== ENCOUNTER → 2021-12-18 10:09 | Outpatient (CLI) | payer MEDICARE, SELFPAY ==
--- NOTE | 2021-12-18 11:13 | DI.CT.S_ITS ---
PROCEDURE: CT ANGIO CHEST INDICATIONS: heart palpitations TECHNIQUE: After the administration of intravenous contrast, 2 mm thick sections acquired from the pulmonary apices to the posterior costophrenic angles. 3-dimensional maximum intensity projection (MIP) coronal and sagittal reformats were then acquired through the thorax. For radiation dose reduction, the following was used: automated exposure control, adjustment of mA and/or kV according to patient size. COMPARISON: [facility], CT, CT ANGIO CHEST PE, 05/20/2021, 16:41. [facility], CT, CT ANGIO CHEST PE, 10/27/2021, 14:57. FINDINGS: Image quality: Excellent. Lungs and pleura: Biapical scarring is unchanged. Multiple subcentimeter nodules are again seen scattered in the bilateral lung field measuring up to 7 mm along the oblique fissure on the right series 8, image 163 and in the right lower lobe measuring 7 mm series 8, image 157. There is a calcified subpleural nodule on the right series 8, image 107 which is unchanged. No acute air space opacities. No pleural effusions or pneumothorax. Central and peripheral airways are patent and normal in caliber. Mediastinum: Heart size is normal. No pericardial effusion. Previously seen pericardial effusion on 10/27/2021 has resolved. No mediastinal adenopathy by size criteria. Thoracic aorta and central pulmonary arteries are normal in size. Esophagus is normal in caliber. No hiatal hernia. Bones and chest wall: No suspicious bony lesions. No vertebral body compression fractures. No axillary or supraclavicular adenopathy by size criteria. Thyroid gland is normal. Abdomen: Limited visualization of the upper abdomen shows no acute abnormality. IMPRESSION: IMPRESSION: 1. No acute abnormality of the chest. 2. No pulmonary embolism. 3. Subcentimeter pulmonary nodules are unchanged compared to the prior CT on 10/27/2021 and 05/20/2021. Recommend follow-up CT in 12 months to ensure long-term stability. Dictated by: Maxwell Castellanos M.D. on 12/18/2021 at 14:28 Approved by: Maxwell Castellanos M.D. on 12/18/2021 at 14:35
== END ==
PROVIDERS: PCP Pediatrics; Referring Provider Pediatrics; Visit Provider Pediatrics
DX: R07.89 Other chest pain (principal); R00.2 Palpitations; R91.8 Other nonspecific abnormal finding of lung field
CPT/HCPCS: 71275; Q9967

== ENCOUNTER → 2021-12-28 15:08 | Outpatient (CLI) | payer MEDICARE, SELFPAY ==
--- NOTE | 2022-01-11 17:13 | PM.CARDMON.1 ---
[employer] Report Referral & Results Date Patient Seen: 12/28/21 Requesting provider: Demetrius Rollins Indication: Dyspnea Duration of monitoring (days): 7 Diary information: There were 3 patient triggered events and no patient diary entries Patient triggered events were variably associated with sinus rhythm, PVCs and ventricular trigeminy Data: Minimum heart rate was 50 beats per minute at 09:27 on 01/04/2022 Maximum sinus heart rate was 144 beats per minute at 14:15 on 12/31/2021 Maximum overall heart rate was 187 beats per minute at 11:42 on 12/29/2021 during a run of SVT Approximately 1.6 identified beats were supraventricular ectopic in origin which would classify them as occasional Less than 1% of identified beats were ventricular ectopic in origin which would classify them as rare but this did include a 1 minute 26 seconds run of ventricular trigeminy There were 11 runs of SVT with the fastest being the 4 beat run at 187 beats per minute, the longest lasting 13.2 seconds There were no pauses of 3 seconds or longer or episodes of atrial fibrillation identified on this study Impression: 6+ day residential monitor demonstrating occasional PACs as well as rare PVCs and very rare very brief runs of SVT Clinical correlation suggested
== END ==
PROVIDERS: PCP Pediatrics; Referring Provider Pediatrics; Visit Provider Pediatrics
DX: R06.00 Dyspnea, unspecified (principal); R06.2 Wheezing
CPT/HCPCS: 93242; 93244

== ENCOUNTER → 2022-01-15 11:34 | Outpatient (CLI) | payer MEDICARE, SELFPAY ==
--- NOTE | 2022-01-15 11:38 | DI.RAD.S_ITS ---
PROCEDURE: XR CHEST 2V INDICATIONS: cough, wheeze, h/o pericarditis/pleuritis, infiltrate?, cor? TECHNIQUE: 2 views of the chest were acquired. COMPARISON: [facility], , XR CHEST 2V, 11/16/2021, 16:50. FINDINGS: Surgical changes and devices: None. Lungs and pleura: Lungs are clear, aside from sub cm right upper lobe peripheral calcified granuloma.. No pleural effusions or pneumothorax. Mediastinum: Mediastinal contours are normal. Heart size is normal. Bones and chest wall: No suspicious bony abnormalities. Soft tissues appear unremarkable. IMPRESSION: No acute cardiopulmonary disease. Dictated by: Manpreet Lindo RRKay Interpreted: Chrystal Agrawal MD on 01/15/2022 at 12:15 Transcribed by: EDMAR on 01/15/2022 at 12:16 Approved by: Chrystal Agrawal M.D. on 01/15/2022 at 15:26
== END ==
PROVIDERS: PCP Pediatrics; Referring Provider Pediatrics; Visit Provider Pediatrics
DX: I20.1 Angina pectoris with documented spasm (principal); J40 Bronchitis, not specified as acute or chronic; R06.00 Dyspnea, unspecified; R06.2 Wheezing; Z72.0 Tobacco use
CPT/HCPCS: 71046

== ENCOUNTER 2022-03-31 22:09 | Emergency (ER) | payer MEDICARE, SELFPAY ==
[2022-03-31 22:12] VITALS: BP 124/71; PULSE 91; RESP 20; TEMP 36.4; O2SAT 95
--- NOTE | 2022-03-31 22:15 | DI.RAD.S_ITS ---
PROCEDURE: XR RIBS RT MIN 3V W CXR 1V INDICATIONS: fall TECHNIQUE: Two views of the right ribs were acquired, along with a single view chest. COMPARISON: None. FINDINGS: Surgical changes and devices: None. Bones and chest wall: No displaced rib fracture identified. No suspicious bony lesions. Overlying soft tissues appear unremarkable. Lungs and pleura: No pleural effusions or pneumothorax. Lungs demonstrate no acute consolidation. There is a dense nodule in the right lung consistent with a calcified granuloma. Mediastinum: Mediastinal contours appear normal. Heart size is normal. IMPRESSION: 1. No displaced rib fracture identified. Dictated by: Thad Goss M.D. on 03/31/2022 at 22:44 Approved by: Thad Goss M.D. on 03/31/2022 at 22:47
--- NOTE | 2022-04-01 01:25 | ED_ITS ---
HPI - Fall General Chief Complaint: Fall Stated Complaint: rt rib pain, rt knee injury s/p fall Time Seen by Provider: 04/01/22 01:25 Source: patient Mode of arrival: Ambulatory History of Present Illness HPI Narrative: Patient is a 61-year-old female history of hypothyroid presenting today with right-sided rib pain. She says it has been ongoing for the last 2 days after she fell. She was chasing her grandson she fell onto her keys. Hurts every time she breathes or moves. She has been taking Tylenol and ibuprofen without any relief she would really like some sleep tonight. No other injury she did not hit her head or lose consciousness. Related Data Home Medications Medication Instructions Recorded Confirmed aspirin 81 mg tablet,delayed 81 mg PO DAILY 09/29/18 11/10/21 release Lactobacillus acidophilus PO 11/10/21 11/10/21 [Acidophilus] chlorzoxazone 500 mg tablet 500 mg PO TID 11/10/21 11/10/21 escitalopram oxalate 20 mg tablet 20 mg PO DAILY 11/10/21 11/10/21 ibuprofen 200 mg tablet 200 mg PO Q6H PRN 11/10/21 11/10/21 loratadine 10 mg tablet (Claritin) 10 mg PO DAILY 11/10/21 11/10/21 multivitamin 1 tab PO DAILY 11/10/21 11/10/21 nitroglycerin 0.4 mg sublingual 0.4 mg sublingual 11/10/21 11/10/21 tablet soy isoflavone-black cohosh cap PO 11/10/21 11/10/21 root-magnolia bark 155 mg capsule (Estroven) Previous Rx's Medication Instructions Recorded ondansetron 4 mg disintegrating 4 mg PO Q6H PRN nausea and 11/30/21 tablet vomiting #7 tabs amlodipine 5 mg tablet 5 mg PO DAILY coronary spasm and 12/24/21 blood pressure #30 tabs albuterol sulfate 90 mcg/actuation 2 puff inhalation Q4-6H PRN 01/15/22 aerosol inhaler shortness of breath or wheezing #6.7 grams amoxicillin 500 mg-potassium 1 tab PO BID #20 tabs 01/15/22 clavulanate 125 mg tablet (Augmentin) prednisone 20 mg tablet 20 mg PO DAILY #5 tabs 01/15/22 albuterol sulfate 2.5 mg/3 mL 2.5 mg (3 mL) inhalation QID PRN 02/18/22 (0.083 %) solution for nebulization shortness of breath or wheezing #75 mL Synthroid 125 mcg tablet 125 mcg PO DAILY #90 tabs 03/16/22 (levothyroxine) hydrocodone 5 mg-acetaminophen 325 1 tab PO Q6H PRN pain #10 tabs 04/01/22 mg tablet Allergies Allergy/AdvReac Type Severity Reaction Status Date / Time No Known Drug Allergies Allergy Verified 11/10/21 14:18 Review of Systems Review of Systems Narrative: GENERAL: Denies chills,fever HEENT: Denies throat pain RESPIRATORY: See HPI CARDIOVASCULAR: Denies chest pain, palpitations GASTROINTESTINAL: Denies nausea, vomiting MUSCULOSKELETAL: Denies extremity pain, injury SKIN: No rash, no laceration, no pruritus NEUROLOGIC: Denies weakness, dizziness, headache, numbness 8 point review of systems is negative except for those stated above and HPI Patient History Medical History Bronchitis Coronary vasospasm CARRIZALES (dyspnea on exertion) Elevated CK Tobacco use Tobacco use Wheezing Social History Smoking Status: Current every day smoker Tobacco: How many years used: 40 alcohol intake: current (couple drinks per month ) substance use type: marijuana (Daily ) Smoking Status: Current every day smoker alcohol intake frequency: other Substance Use Type: does not use Exam Initial Vital Signs Initial Vital Signs: Vital Signs Temperature 97.5 F L 03/31/22 22:12 Pulse Rate 91 H 03/31/22 22:12 Respiratory Rate 20 03/31/22 22:12 Blood Pressure 124/71 03/31/22 22:12 Pulse Oximetry 95 03/31/22 22:12 Oxygen Delivery Method 03/31/22 22:12 GENERAL: Alert pleasant 61-year-old female no acute distress and in no acute distress. HEENT: Head atraumatic,EOMI, pupils reactive, face symmetric, moist mucous membranes CARDIOVASCULAR: Regular rate and rhythm without murmurs, rubs or gallops. RESPIRATORY: Breath sounds equal bilaterally, no wheezes rales or rhonchi. Right anterior lower rib pain mild contusion is seen no obvious paradoxical movement no other trauma ABDOMEN: Soft, nontender. Normoactive bowel sounds all 4 quadrants. No guarding or rebound. EXTREMITIES: Normal range of motion, no clubbing or edema. Neurovascularly intact NEUROLOGICAL: Alert and oriented x4.Normal gait and speech. SKIN: Warm, dry, no laceration, no petechiae, no rashes or lesions. Course Orders Ordered: ED Orders 03/31/22 22:15 XR ribs RT min 3V w CXR1V Stat Discontinued Medications Hydrocodone Bitart/Acetaminophen (Hydrocodone/Acet 5/325 Prepack) 1 bottle MISC SEEINSTR ONE Stop: 04/01/22 01:32 Last Admin: 04/01/22 01:47 Dose: 1 bottle Documented By: REMY Ketorolac Tromethamine (Ketorolac 30 Mg/Ml Vial) 30 mg IM NOW ONE Stop: 04/01/22 01:32 Last Admin: 04/01/22 01:47 Dose: 30 mg Documented By: REMY Vital Signs Vital signs: Vital Signs - 8 hr 03/31/22 22:12 04/01/22 01:56 Temperature 97.5 F L Pulse Rate 91 H 88 Respiratory Rate 20 18 Blood Pressure 124/71 121/70 Pulse Oximetry 95 96 Oxygen Delivery Method Room Air Room Air MDM - Fall Imaging Data Chest x-ray: Radiologist's Impression: XRay Report Signed Patient: Sole Ramos MR#: [id number] : 1960 Acct:[id number] Age/Sex: 61 / F Date of Service: 03/31/22 Loc: ED Accession Number: [id number] ?? Procedure: XR ribs RT min 3V w CXR1V Ordering Provider: Olga Winslow D.O. PROCEDURE:? XR RIBS RT MIN 3V W CXR 1V ? INDICATIONS:? fall ? TECHNIQUE:? Two views of the right ribs were acquired, along with a single view chest.? ? COMPARISON:? None. ? FINDINGS:? ? Surgical changes and devices:? None.? ? Bones and chest wall:? No displaced rib fracture identified.? No suspicious bony lesions. ?Overlying soft tissues appear unremarkable.? ? Lungs and pleura:? No pleural effusions or pneumothorax.? Lungs demonstrate no acute consolidation.? There is a dense nodule in the right lung consistent with a calcified granuloma. ? Mediastinum:? Mediastinal contours appear normal.? Heart size is normal.? ? IMPRESSION:? ? 1.? No displaced rib fracture identified. ? ? Dictated by: Thad Goss M.D. on 03/31/2022 at 22:44 ? ? [facility] Narrative Medical decision making narrative: Patient fell 2 days ago landing on her keys. Significant pain with ribs x-ray does not show any pneumothorax or rib fracture. Pain control only. His she is given Toradol and [place] here in the ED. Supportive measures only instructions on when to return. Discharge Plan Departure Patient Disposition: Home Clinical Impression: Contusion of rib on right side Instructions: DI for Rib Contusion Activity Restrictions/Additional Instructions: *You have been diagnosed with rib contusion *What to do: At this time no evidence of broken bone. Apply ice if tolerated. May use a pillow for splinting. Should start to get better over the next 1-2 weeks. *Continue to take medications as directed [place] 1 tablet every 6 hours if needed for severe pain--> SENT TO [facility] Ibuprofen 600 mg every 6 hours if needed for [id number] pain *Follow up with your primary care provider in 2-3 days or call [phone] *Return to ER if you should have pain, shortness of breath or any new, worsening or concerning symptoms CONTROLLED SUBSTANCE DISCHARGE (Narcotoic/benzodiazepine/Flexeril/Phenergan) 1. You have been prescribed narcotic medications, it does have acetaminophen/Tylenol/paracetamol in it, DO NOT TAKE MORE THAN 4,00mg in 24 hours of Tylenol. TRAMADOL DOES NOT CONTAIN TYLENOL 2. Please understand that we cannot provide further refills of narcotics, benzodiazepines or controlled substances through the ED and her pain management will need to be through your provider. 3. While on these medications you cannot drive or operate heavy machinery. 4. You cannot sign legal documents or perform any duties such as this. 5. As long as you're taking opiate pain medications he should also be taking a stool softener such as Colace, Dulcolax, MiraLAX or prune juice, to help avoid constipation. Prescriptions: New hydrocodone-acetaminophen 5-325 mg tablet 1 tab PO Q6H PRN (Reason: pain) Qty: 10 0RF No Action aspirin 81 mg tablet,delayed release (DR/EC) 81 mg PO DAILY albuterol sulfate 2.5 mg /3 mL (0.083 %) solution for nebulization 2.5 mg inhalation QID PRN (Reason: shortness of breath or wheezing) Qty: 75 0RF levothyroxine [Synthroid] 125 mcg tablet 125 mcg PO DAILY Qty: 90 0RF Rx Instructions: LABS DUE FOR FURTHER REFILLS. 03/12/22 Lactobacillus acidophilus [Acidophilus] PO chlorzoxazone 500 mg tablet 500 mg PO TID escitalopram oxalate 20 mg tablet 20 mg PO DAILY Estroven 155 mg capsule PO ibuprofen 200 mg tablet 200 mg PO Q6H PRN loratadine [Claritin] 10 mg tablet 10 mg PO DAILY multivitamin Tablet 1 tab PO DAILY nitroglycerin 0.4 mg tablet, sublingual 0.4 mg sublingual Label Comments: PLACE 1 TABLET UNDER THE TONGUE EVERY 5 MINUTES NEEDED FOR CHEST PAIN amlodipine 5 mg tablet 5 mg PO DAILY Qty: 30 3RF Rx Instructions: Could go up to one tab twice daily if chest symptoms return on one daily. Call for additional med if two tabs needed daily. albuterol sulfate 90 mcg/actuation HFA aerosol inhaler 2 puff inhalation Q4-6H PRN (Reason: shortness of breath or wheezing) Qty: 6.7 3RF amoxicillin-pot clavulanate [Augmentin] 500-125 mg tablet 1 tab PO BID Qty: 20 0RF prednisone 20 mg tablet 20 mg PO DAILY Qty: 5 0RF Rx Instructions: short prednisone course for smoker's bronchitis with wheezing ondansetron 4 mg tablet,disintegrating 4 mg PO Q6H PRN (Reason: nausea and vomiting) Qty: 7 0RF Referrals: Demetrius Rollins MD [Primary Care Provider] - Visit Report Forms: Patient Portal/API
[2022-04-01] MEDS: HYDROCODONE/ACET 5/325 PREPACK 1 BOTTLE MISC (01:47)
[2022-04-01] MEDS: KETOROLAC 30 MG/ML VIAL IM (01:47)
[2022-04-01 01:56] VITALS: BP 121/70; PULSE 88; RESP 18; O2SAT 96
== END 2022-04-01 01:57 | disposition home or self-care (01) ==
PROVIDERS: Emergency Provider Emergency Medicine; PCP Pediatrics
DX: S20.211A Contusion of right front wall of thorax, initial encounter (principal); W18.30XA Fall on same level, unspecified, initial encounter
CPT/HCPCS: 71101; 96372; 99283; J1885

== ENCOUNTER 2022-05-04 10:31 | Emergency (ER) | payer MEDICARE, SELFPAY ==
[2022-05-04] VITALS (21 sets, daily range): BP systolic 112–138; BP diastolic 54–79; PULSE 79–96; RESP 10–34; TEMP 30–36.1; O2SAT 90–100; BMI 25.9
--- NOTE | 2022-05-04 10:44 | DI.RAD.S_ITS ---
PROCEDURE: XR CHEST 1V INDICATIONS: Shortness of breath TECHNIQUE: One view of the chest was acquired. COMPARISON: [facility], CR, XR CHEST 2V, 01/15/2022, 11:41. FINDINGS: Surgical changes and devices: Partially imaged cervical fusion. Lungs and pleura: Mild perihilar bronchial wall thickening bilaterally superimposed on bilateral upper lobe emphysematous changes. There is a right lateral upper lobe stable nodule. No acute consolidations. Mediastinum: Mediastinal contours appear normal. Heart size is normal. Bones and chest wall: No suspicious bony lesions. Overlying soft tissues appear unremarkable. IMPRESSION: 1. Chronic findings of bronchial wall thickening and emphysema. 2. No acute consolidation. Dictated by: Josseline Juan M.D. on 05/04/2022 at 12:10 Approved by: Josseline Juan M.D. on 05/04/2022 at 12:12
[2022-05-04 10:58] LABS: Add Manual Diff / Slide Review NO; Basophils Absolute Auto 100 /uL (0-100); Eosinophils Absolute Auto 1300 /uL (0-450); Eosinophils Percent Auto 13.1 % (2-4); Hematocrit 39.7 % (36-46); Hemoglobin 13.3 g/dL (12.0-16.0); Lymphocytes Absolute Auto 2500 /uL (1100-4500); Lymphocytes Percent Auto 25.9 % (25-40); Mean Corpuscular HGB Conc 33.5 % (30-36); Mean Corpuscular Hemoglobin 29.2 PG (26-34); Mean Corpuscular Volume 87.3 fL (80-100); Monocytes Absolute Auto 800 /uL (0-900); Monocytes Percent Auto 7.9 % (3-14); Neutrophils Absolute Auto 5000 /uL (1500-7000); Neutrophils Percent Auto 52.1 % (50-75); Platelet Count 310 X10^3/uL (150-400); Red Blood Cell Count 4.54 X10^6/uL (4.0-5.2); Red Cell Distribution Width 14.9 % (11.6-14.8); White Blood Cell Count 9.6 X10^3/uL (4.5-11.0)
[2022-05-04] MEDS: methylPREDNISolone 125 MG/2 ML VIAL IV (10:59)
[2022-05-04 11:06] LABS: Prothrombin Time 11.9 SECONDS (10.1-12.7)
[2022-05-04] MEDS: ALBUTEROL 2.5 MG/3 ML NEB (ADULT) 20 MG INH (11:06)
[2022-05-04] MEDS: ALBUTEROL/IPRATROPIUM 3 ML AMPUL INH (11:06)
[2022-05-04 11:12] LABS: Alanine Aminotransferase 22 IU/L (<35); Albumin 4.2 g/dL (3.5-5.0); Albumin Globulin Ratio 1.2 (1.0-2.8); Alkaline Phosphatase 102 U/L (38-126); Aspartate Aminotransferase 27 IU/L (14-36); BUN Creatinine Ratio 20.5 (6-22); Bilirubin Total 0.3 mg/dL (0.2-1.3); Blood Urea Nitrogen 15 mg/dL (7-17); Calcium 8.9 mg/dL (8.4-10.2); Carbon Dioxide 22 mmol/L (22-32); Chloride 107 mmol/L (98-107); Estimated Glomerular Filt Rate > 60 mL/min (>60); Globulin 3.5 g/dL (1.7-4.1); Glucose 100 mg/dL (80-110); HEMOLYSIS < 15 (0-50); Lactate (Lactic Acid) 1.7 mmol/L (0.7-2.1); Potassium 4.1 mmol/L (3.4-5.1); Sodium 139 mmol/L (137-145); Total Protein 7.7 g/dL (6.3-8.2)
[2022-05-04 11:23] LABS: NT-proBNP (BNP-Adult 18+) 61 pg/mL (<125); Troponin I < 0.012 ng/mL (0.01-0.034)
--- NOTE | 2022-05-04 11:23 | ED.SOB ---
HPI - SOB/Dyspnea General Chief Complaint: Shortness of Breath/Dyspnea Stated Complaint: copd exacb resp. distress Time Seen by Provider: 05/04/22 10:54 History of Present Illness HPI Narrative: Patient is a 61-year-old female with history of COPD, presents today with increasing shortness of breath. She states that she is been on steroids and antibiotics, doxycycline, she finished the antibiotics 3 days ago she is had increasing shortness of breath since then. She went to PCP today for follow-up. Having increasing shortness of breath. Difficulty speaking and giving history. She feels like her chest is very tight. She denies fevers or chills. Related Data Home Medications Medication Instructions Recorded Confirmed aspirin 81 mg tablet,delayed 81 mg PO DAILY 09/29/18 05/04/22 release Lactobacillus acidophilus PO 11/10/21 05/04/22 [Acidophilus] chlorzoxazone 500 mg tablet 500 mg PO TID 11/10/21 05/04/22 escitalopram oxalate 20 mg tablet 20 mg PO DAILY 11/10/21 05/04/22 ibuprofen 200 mg tablet 200 mg PO Q6H PRN 11/10/21 05/04/22 loratadine 10 mg tablet (Claritin) 10 mg PO DAILY 11/10/21 05/04/22 multivitamin 1 tab PO DAILY 11/10/21 05/04/22 nitroglycerin 0.4 mg sublingual 0.4 mg sublingual 11/10/21 05/04/22 tablet soy isoflavone-black cohosh cap PO 11/10/21 05/04/22 root-magnolia bark 155 mg capsule (Estroven) metoprolol succinate 25 mg 12.5 mg PO DAILY 05/04/22 05/04/22 tablet,extended release 24 hr Previous Rx's Medication Instructions Recorded ondansetron 4 mg disintegrating 4 mg PO Q6H PRN nausea and 11/30/21 tablet vomiting #7 tabs amlodipine 5 mg tablet 5 mg PO DAILY coronary spasm and 12/24/21 blood pressure #30 tabs albuterol sulfate 90 mcg/actuation 2 puff inhalation Q4-6H PRN 01/15/22 aerosol inhaler shortness of breath or wheezing #6.7 grams Synthroid 125 mcg tablet 125 mcg PO DAILY #90 tabs 03/16/22 (levothyroxine) hydrocodone 5 mg-acetaminophen 325 1 tab PO Q6H PRN pain #10 tabs 04/01/22 mg tablet prednisone 10 mg tablet 10 mg PO DAILY #30 tabs 05/04/22 Allergies Allergy/AdvReac Type Severity Reaction Status Date / Time No Known Drug Allergies Allergy Verified 05/04/22 10:42 Review of Systems Review of Systems Narrative: GENERAL: Denies chills, fatigue, malaise, fever, sweats, travel HEENT: Denies sinus pain, ear pain, sore throat, difficulty swallowing, neck pain RESPIRATORY: See HPI CARDIOVASCULAR: Denies chest pain, palpitations, orthopnea, edema GASTROINTESTINAL: Denies nausea, vomiting, abdominal pain, diarrhea, constipation, melena. : Denies dysuria, frequency, incontinence, hematuria, urinary retention, flank pain. MUSCULOSKELETAL: Denies weakness, joint pain, or bony pain SKIN: No rash, no erythema, no pruritus NEUROLOGIC: Denies weakness, dizziness, headache, numbness, change in speech, confusion PSYCHIATRIC: No concerning psychosocial issues. 12 point review of systems is negative except for those stated above and HPI Patient History Medical History Bronchitis Coronary vasospasm CARRIZALES (dyspnea on exertion) Elevated CK Tobacco use Tobacco use Wheezing Social History Smoking Status: Current every day smoker Tobacco: How many years used: 40 alcohol intake: current (couple drinks per month ) substance use type: marijuana (Daily ) Smoking Status: Current every day smoker alcohol intake frequency: other Substance Use Type: does not use Exam Initial Vital Signs Initial Vital Signs: Vital Signs Temperature 97.0 F L 05/04/22 10:42 Pulse Rate 91 H 05/04/22 10:42 Respiratory Rate 21 05/04/22 10:42 Blood Pressure 121/54 L 05/04/22 10:42 Pulse Oximetry 94 05/04/22 10:42 Oxygen Delivery Method 05/04/22 10:42 GENERAL: Alert 61-year-old female moderate distress and in no acute distress. HEENT: Head atraumatic,EOMI, pupils reactive, face symmetric, moist mucous membranes CARDIOVASCULAR: Regular rate and rhythm without murmurs, rubs or gallops. RESPIRATORY: Decreased breath sounds bilaterally speaks in 1-2 word sentences ABDOMEN: Soft, nontender. Normoactive bowel sounds all 4 quadrants. No guarding or rebound. EXTREMITIES: Normal range of motion, no clubbing or edema. Neurovascularly intact NEUROLOGICAL: Alert and oriented x4. SKIN: Warm, dry, no laceration, no petechiae, no rashes or lesions. Course Orders Ordered: Discontinued Medications Albuterol (Albuterol 2.5 Mg/3 Ml Neb (Adult)) 20 mg INH NOW ONE Stop: 05/04/22 10:55 Last Admin: 05/04/22 11:06 Dose: 20 mg Documented By: JOSE LUIS Albuterol/Ipratropium (Albuterol/Ipratropium 3 Ml Ampul) 3 ml INH NOW ONE Stop: 05/04/22 10:55 Last Admin: 05/04/22 11:06 Dose: 3 ml Documented By: JOSE LUIS Methylprednisolone (Methylprednisolone 125 Mg/2 Ml Vial) 125 mg IV NOW ONE Stop: 05/04/22 10:55 Last Admin: 05/04/22 10:59 Dose: 125 mg Documented By: TERRENCE Vital Signs Vital signs: Vital Signs - 8 hr 05/04/22 12:00 05/04/22 12:04 05/04/22 12:04 Pulse Rate 79 86 Respiratory Rate 16 23 Blood Pressure 130/63 Pulse Oximetry 100 100 Oxygen Delivery Method 05/04/22 12:30 05/04/22 12:30 05/04/22 13:00 Pulse Rate 88 Respiratory Rate 23 Blood Pressure 120/73 138/73 Pulse Oximetry 90 L Oxygen Delivery Method 05/04/22 13:00 05/04/22 13:30 05/04/22 13:30 Pulse Rate 88 88 Respiratory Rate 17 23 Blood Pressure Pulse Oximetry 90 L 98 97 Oxygen Delivery Method Room Air 05/04/22 13:31 05/04/22 13:31 05/04/22 14:08 Pulse Rate 85 96 H Respiratory Rate 20 34 H Blood Pressure 123/68 Pulse Oximetry 98 99 Oxygen Delivery Method Room Air 05/04/22 14:30 05/04/22 15:00 05/04/22 15:30 Pulse Rate 93 H 94 H 94 H Respiratory Rate 16 14 22 Blood Pressure Pulse Oximetry 98 97 96 Oxygen Delivery Method Room Air Room Air 05/04/22 16:00 05/04/22 16:10 05/04/22 16:10 Pulse Rate 87 88 Respiratory Rate 14 16 Blood Pressure 113/61 Pulse Oximetry 94 94 Oxygen Delivery Method Room Air 05/04/22 16:30 05/04/22 17:00 05/04/22 17:30 Pulse Rate 88 89 88 Respiratory Rate 24 20 17 Blood Pressure Pulse Oximetry 95 95 93 Oxygen Delivery Method Room Air 05/04/22 17:36 05/04/22 17:36 Pulse Rate 89 Respiratory Rate Blood Pressure 112/60 Pulse Oximetry 94 Oxygen Delivery Method MDM - SOB/Dyspnea Lab Data Result diagrams: 05/04/22 10:52 05/04/22 10:52 Labs: Lab Results 05/04/22 05/04/22 05/04/22 Range/Units 10:52 10:52 10:52 WBC 9.6 (4.5-11.0) X10^3/uL RBC 4.54 (4.0-5.2) X10^6/uL Hgb 13.3 (12.0-16.0) g/dL Hct 39.7 (36-46) % MCV 87.3 (80-100) fL MCH 29.2 (26-34) PG MCHC 33.5 (30-36) % RDW 14.9 H (11.6-14.8) % Plt Count 310 (150-400) X10^3/uL Neut % (Auto) 52.1 (50-75) % Lymph % (Auto) 25.9 (25-40) % [place] % (Auto) 7.9 (3-14) % Eos % (Auto) 13.1 H (2-4) % Baso % (Auto) 1.0 (0-2) % Neut # (Auto) 5000 (9872-0255) /uL Lymph # (Auto) 2500 (0482-1678) /uL [place] # (Auto) 800 (0-900) /uL Eos # (Auto) 1300 H (0-450) /uL Baso # (Auto) 100 (0-100) /uL PT 11.9 (10.1-12.7) SECONDS INR 1.0 (0.9-1.3) Sodium 139 (137-145) mmol/L Potassium 4.1 (3.4-5.1) mmol/L Chloride 107 (98-107) mmol/L Carbon Dioxide 22 (22-32) mmol/L BUN 15 (7-17) mg/dL Creatinine 0.73 (0.52-1.04) mg/dL Estimated GFR > 60 (>60) mL/min BUN/Creatinine Ratio 20.5 (6-22) Glucose 100 (80-110) mg/dL Lactate (0.7-2.1) mmol/L Calcium 8.9 (8.4-10.2) mg/dL Total Bilirubin 0.3 (0.2-1.3) mg/dL AST 27 (14-36) IU/L ALT 22 (<35) IU/L Alkaline Phosphatase 102 (38-126) U/L Troponin I < 0.012 (0.01-0.034) ng/mL NT-Pro-B Natriuret Pep 61 (<125) pg/mL Total Protein 7.7 (6.3-8.2) g/dL Albumin 4.2 (3.5-5.0) g/dL Globulin 3.5 (1.7-4.1) g/dL Albumin/Globulin Ratio 1.2 (1.0-2.8) Procalcitonin (<0.5) ng/mL TSH (0.47-4.68) uIU/mL Free T4 (0.78-2.19) ng/dL Free T3 (2.77-5.27) pg/mL Chlamy pneumoniae PCR (Not Detect) Adenovirus (PCR) (Not Detect) B. pertussis DNA (PCR) (Not Detecte) B.parapertussis DNA PCR (Not Detecte) Coronavirus OC43 (PCR) (Not Detect) Coronavirus HKU1 (PCR) (Not Detect) Coronavirus 229E (PCR) (Not Detect) SARS-CoV-2 (PCR) (Negative) Coronavirus NL63 (PCR) (Not Detect) Human Metapneumovir PCR (Not Detect) Influenza Type A (PCR) (Not Detect) Influenza Type B (PCR) (Not Detect) M. pneumoniae (PCR) (Not Detect) Parainfluenza 1 (PCR) (Not Detect) Parainfluenza 2 (PCR) (Not Detect) Parainfluenza 3 (PCR) (Not Detect) Parainfluenza 4 (PCR) (Not Detect) RSV (PCR) (Not Detect) Entero/Rhino (PCR) (Not Detect) 05/04/22 05/04/22 05/04/22 Range/Units 10:52 10:52 10:52 WBC (4.5-11.0) X10^3/uL RBC (4.0-5.2) X10^6/uL Hgb (12.0-16.0) g/dL Hct (36-46) % MCV (80-100) fL MCH (26-34) PG MCHC (30-36) % RDW (11.6-14.8) % Plt Count (150-400) X10^3/uL Neut % (Auto) (50-75) % Lymph % (Auto) (25-40) % [place] % (Auto) (3-14) % Eos % (Auto) (2-4) % Baso % (Auto) (0-2) % Neut # (Auto) (5004-1526) /uL Lymph # (Auto) (3328-6009) /uL [place] # (Auto) (0-900) /uL Eos # (Auto) (0-450) /uL Baso # (Auto) (0-100) /uL PT (10.1-12.7) SECONDS INR (0.9-1.3) Sodium (137-145) mmol/L Potassium (3.4-5.1) mmol/L Chloride (98-107) mmol/L Carbon Dioxide (22-32) mmol/L BUN (7-17) mg/dL Creatinine (0.52-1.04) mg/dL Estimated GFR (>60) mL/min BUN/Creatinine Ratio (6-22) Glucose (80-110) mg/dL Lactate 1.7 (0.7-2.1) mmol/L Calcium (8.4-10.2) mg/dL Total Bilirubin (0.2-1.3) mg/dL AST (14-36) IU/L ALT (<35) IU/L Alkaline Phosphatase (38-126) U/L Troponin I (0.01-0.034) ng/mL NT-Pro-B Natriuret Pep (<125) pg/mL Total Protein (6.3-8.2) g/dL Albumin (3.5-5.0) g/dL Globulin (1.7-4.1) g/dL Albumin/Globulin Ratio (1.0-2.8) Procalcitonin 0.04 (<0.5) ng/mL TSH 1.93 (0.47-4.68) uIU/mL Free T4 1.09 (0.78-2.19) ng/dL Free T3 3.18 (2.77-5.27) pg/mL Chlamy pneumoniae PCR (Not Detect) Adenovirus (PCR) (Not Detect) B. pertussis DNA (PCR) (Not Detecte) B.parapertussis DNA PCR (Not Detecte) Coronavirus OC43 (PCR) (Not Detect) Coronavirus HKU1 (PCR) (Not Detect) Coronavirus 229E (PCR) (Not Detect) SARS-CoV-2 (PCR) (Negative) Coronavirus NL63 (PCR) (Not Detect) Human Metapneumovir PCR (Not Detect) Influenza Type A (PCR) (Not Detect) Influenza Type B (PCR) (Not Detect) M. pneumoniae (PCR) (Not Detect) Parainfluenza 1 (PCR) (Not Detect) Parainfluenza 2 (PCR) (Not Detect) Parainfluenza 3 (PCR) (Not Detect) Parainfluenza 4 (PCR) (Not Detect) RSV (PCR) (Not Detect) Entero/Rhino (PCR) (Not Detect) 05/04/22 05/04/22 05/04/22 Range/Units 10:54 11:01 14:30 WBC (4.5-11.0) X10^3/uL RBC (4.0-5.2) X10^6/uL Hgb (12.0-16.0) g/dL Hct (36-46) % MCV (80-100) fL MCH (26-34) PG MCHC (30-36) % RDW (11.6-14.8) % Plt Count (150-400) X10^3/uL Neut % (Auto) (50-75) % Lymph % (Auto) (25-40) % [place] % (Auto) (3-14) % Eos % (Auto) (2-4) % Baso % (Auto) (0-2) % Neut # (Auto) (2404-2427) /uL Lymph # (Auto) (9207-1656) /uL [place] # (Auto) (0-900) /uL Eos # (Auto) (0-450) /uL Baso # (Auto) (0-100) /uL PT (10.1-12.7) SECONDS INR (0.9-1.3) Sodium (137-145) mmol/L Potassium (3.4-5.1) mmol/L Chloride (98-107) mmol/L Carbon Dioxide (22-32) mmol/L BUN (7-17) mg/dL Creatinine (0.52-1.04) mg/dL Estimated GFR (>60) mL/min BUN/Creatinine Ratio (6-22) Glucose (80-110) mg/dL Lactate (0.7-2.1) mmol/L Calcium (8.4-10.2) mg/dL Total Bilirubin (0.2-1.3) mg/dL AST (14-36) IU/L ALT (<35) IU/L Alkaline Phosphatase (38-126) U/L Troponin I < 0.012 (0.01-0.034) ng/mL NT-Pro-B Natriuret Pep (<125) pg/mL Total Protein (6.3-8.2) g/dL Albumin (3.5-5.0) g/dL Globulin (1.7-4.1) g/dL Albumin/Globulin Ratio (1.0-2.8) Procalcitonin (<0.5) ng/mL TSH (0.47-4.68) uIU/mL Free T4 (0.78-2.19) ng/dL Free T3 (2.77-5.27) pg/mL Chlamy pneumoniae PCR Not detected (Not Detect) Adenovirus (PCR) Not detected (Not Detect) B. pertussis DNA (PCR) Not detected (Not Detecte) B.parapertussis DNA PCR Not detected (Not Detecte) Coronavirus OC43 (PCR) Not detected (Not Detect) Coronavirus HKU1 (PCR) Not detected (Not Detect) Coronavirus 229E (PCR) Not detected (Not Detect) SARS-CoV-2 (PCR) Negative Not detected (Negative) Coronavirus NL63 (PCR) Not detected (Not Detect) Human Metapneumovir PCR Not detected (Not Detect) Influenza Type A (PCR) Not detected (Not Detect) Influenza Type B (PCR) Not detected (Not Detect) M. pneumoniae (PCR) Not detected (Not Detect) Parainfluenza 1 (PCR) Not detected (Not Detect) Parainfluenza 2 (PCR) Not detected (Not Detect) Parainfluenza 3 (PCR) Not detected (Not Detect) Parainfluenza 4 (PCR) Not detected (Not Detect) RSV (PCR) Not detected (Not Detect) Entero/Rhino (PCR) Not detected (Not Detect) Imaging Data Chest x-ray: Radiologist's Impression: [address] [place] [id number] XRay Report Signed Patient: Sole Ramos MR#: [id number] : 1960 Acct:[id number] Age/Sex: 61 / F Date of Service: 05/04/22 Loc: ED Accession Number: [id number] ?? Procedure: XR chest 1V Ordering Provider: Olga Winslow D.O. PROCEDURE:? XR CHEST 1V ? INDICATIONS:? Shortness of breath ? TECHNIQUE:? One view of the chest was acquired.? ? COMPARISON:? [facility], , XR CHEST 2V, 01/15/2022, 11:41. ? FINDINGS:? ? Surgical changes and devices:? Partially imaged cervical fusion. ? Lungs and pleura:? Mild perihilar bronchial wall thickening bilaterally superimposed on bilateral upper lobe emphysematous changes.? There is a right lateral upper lobe stable nodule.? No acute consolidations. ? Mediastinum:? Mediastinal contours appear normal.? Heart size is normal.? ? Bones and chest wall:? No suspicious bony lesions.? Overlying soft tissues appear unremarkable.? ? IMPRESSION:? ? 1. Chronic findings of bronchial wall thickening and emphysema. ? 2. No acute consolidation.? ? ? Dictated by: Josseline Juan M.D. on 05/04/2022 at 12:10 ?? CT scan - chest: Radiologist's Impression: Signed Patient: Sole Ramos MR#: [id number] : 1960 Acct:[id number] Age/Sex: 61 / F Date of Service: 05/04/22 Loc: ED Accession Number: [id number] ?? Procedure: CT angio chest PE protocol Ordering Provider: Botnick,Olga D.O. PROCEDURE:? CT ANGIO CHEST PE PROTOCOL ? INDICATIONS:? hypoxia ? TECHNIQUE:? After the administration of intravenous contrast, 2 mm thick sections acquired from the pulmonary apices to the posterior costophrenic angles.? 3-dimensional maximum intensity projection (MIP) coronal and sagittal reformats were then acquired through the thorax.? For radiation dose reduction, the following was used:? automated exposure control, adjustment of mA and/or kV according to patient size.? ? COMPARISON:? [facility], CT, CT ANGIO CHEST PE, 05/20/2021, 16:41.? [facility], CT, CT ANGIO CHEST, 12/18/2021, 11:49. ? FINDINGS:? Image quality:? Excellent.? ? Pulmonary arteries:? Pulmonary arteries are normal in size, and demonstrate no intraluminal filling defects to suggest central pulmonary embolism.? ? Lungs and pleura:? A fear areas of distal mucus airway plugging.? There is mild bronchial wall thickening.? Right lower lobe pulmonary nodule measuring 0.7 cm, (5/154), unchanged since 05/20/2021.? Right minor fissure pulmonary nodule measuring 0.5 cm, (5/161), unchanged.? Mild ground-glass opacity in the right middle lobe.? Small cyst at the apices.? Right upper lobe calcified granuloma.? No pleural effusions or pneumothorax.? Central and peripheral airways are patent.? ? Mediastinum:? Heart size is normal, without pericardial effusion.? No mediastinal or hilar adenopathy.? Thoracic aorta is normal in caliber and enhancement.? Esophagus is normal in caliber, without hiatal hernia.? ? Bones and chest wall:? ACDF.? No suspicious bony lesions.? Right 5-8th rib fractures with callus formation.? Left thyroid gland appears absent.? No axillary or supraclavicular adenopathy.? ? Abdomen:? Visualized upper abdominal solid organs appear normal in the early arterial phase of enhancement.? Diverticulosis.? ? IMPRESSION:? 1. No pulmonary embolism. ? 2. Mild ground-glass opacity in the right middle lobe.? This could represent infectious/inflammatory etiology.? No pleural effusion. ? 3. A few small pulmonary nodules are stable.? Largest in the right lower lobe measuring 0.7 cm is unchanged since April 2021. -Recommend follow-up CT chest in 12 months. ? 4. Healing right 5-8th rib fractures.? Dictated by: Joe Palacio M.D. on 05/04/2022 at 14:13 ? ? [facility] Narrative Medical decision making narrative: Patient came in in severe respiratory distress. She was put on continuous nebulizer still having difficulty breathing she was placed on BiPAP. She actually tolerated BiPAP really well work of breathing became significantly less she was able to sleep. Her workup is negative. Respiratory panel is negative procalcitonin is negative. We are actually able to take her off BiPAP to get a CT angio to rule out PE which the study was negative. She is remained off oxygen since her CT study. She overall is doing really well. I did discuss briefly with Dr. Mai about admission. However she is no longer requiring oxygen in her work of breathing is significantly less. We both agree that patient can probably go home with a long taper of steroids. Patient understands and agrees to. Unfortunately EKG was ordered but it was never done. Patient was discharged prior to her EKG. She is 2 negative troponins. Her symptoms improved with BiPAP and albuterol consistent with a COPD exacerbation. Discharge Plan Departure Patient Disposition: Home Clinical Impression: COPD exacerbation Instructions: Chronic Obstructive Pulmonary Disease Activity Restrictions/Additional Instructions: *You have been diagnosed with COPD exacerbation *What to do: At this time no need for antibiotics. Hopefully continue to feel better. *Continue to take medications as directed Prednisone 40 mg once a day for 3 days, 30 mg once a day for 3 days, 20 mg once a day for 3 days, 10 mg once a day for 3 days and stop Continue to use albuterol inhaler 1-2 puffs every 4 hours if needed for coughing or shortness of breath *Follow up with your primary care provider in 2-3 days or call [phone] *Return to ER if you should have increasing shortness of breath chest pain fever confused or any new, worsening or concerning symptoms Prescriptions: New prednisone 10 mg tablet 10 mg PO DAILY Qty: 30 0RF Rx Instructions: day 1-3: 40 mg once a day day 4-6: 30 mg once a day day 7-9: 20 mg once a day day 10-12: 10 mg once a day No Action aspirin 81 mg tablet,delayed release (DR/EC) 81 mg PO DAILY levothyroxine [Synthroid] 125 mcg tablet 125 mcg PO DAILY Qty: 90 0RF Rx Instructions: LABS DUE FOR FURTHER REFILLS. 03/12/22 Lactobacillus acidophilus [Acidophilus] PO chlorzoxazone 500 mg tablet 500 mg PO TID escitalopram oxalate 20 mg tablet 20 mg PO DAILY Estroven 155 mg capsule PO ibuprofen 200 mg tablet 200 mg PO Q6H PRN loratadine [Claritin] 10 mg tablet 10 mg PO DAILY multivitamin Tablet 1 tab PO DAILY nitroglycerin 0.4 mg tablet, sublingual 0.4 mg sublingual Label Comments: PLACE 1 TABLET UNDER THE TONGUE EVERY 5 MINUTES NEEDED FOR CHEST PAIN amlodipine 5 mg tablet 5 mg PO DAILY Qty: 30 3RF Rx Instructions: Could go up to one tab twice daily if chest symptoms return on one daily. Call for additional med if two tabs needed daily. albuterol sulfate 90 mcg/actuation HFA aerosol inhaler 2 puff inhalation Q4-6H PRN (Reason: shortness of breath or wheezing) Qty: 6.7 3RF metoprolol succinate 25 mg tablet extended release 24 hr 12.5 mg PO DAILY ondansetron 4 mg tablet,disintegrating 4 mg PO Q6H PRN (Reason: nausea and vomiting) Qty: 7 0RF hydrocodone-acetaminophen 5-325 mg tablet 1 tab PO Q6H PRN (Reason: pain) Qty: 10 0RF Referrals: Demetrius Rollins MD [Primary Care Provider] - Visit Report Forms: Patient Portal/API
[2022-05-04 11:33] LABS: COVID19 -Nasal RAPID Negative (Negative)
[2022-05-04 11:45] LABS: Free T3, Triiodothyronine Free 3.18 pg/mL (2.77-5.27); Free T4, Direct Thyroxine 1.09 ng/dL (0.78-2.19)
[2022-05-04 11:59] LABS: Thyroid Stimulating Hormone 1.93 uIU/mL (0.47-4.68)
[2022-05-04 12:15] LABS: Procalcitonin 0.04 ng/mL (<0.5)
[2022-05-04 12:23] LABS: Adenovirus Not Detected (Not Detect); B. parapertussis Not Detected (Not Detecte); Bordetella pertussis Not Detected (Not Detecte); Chlamydophila pneumoniae Not Detected (Not Detect); Coronavirus 229E Not Detected (Not Detect); Coronavirus HKU1 Not Detected (Not Detect); Coronavirus NL 63 Not Detected (Not Detect); Coronavirus OC43 Not Detected (Not Detect); Human Metapneumovirus Not Detected (Not Detect); Human Rhinovirus/Enterovirus Not Detected (Not Detect); Influenza A Not Detected (Not Detect); Influenza B Not Detected (Not Detect); Mycoplasma pneumoniae Not Detected (Not Detect); Parainfluenza Virus 1 Not Detected (Not Detect); Parainfluenza Virus 2 Not Detected (Not Detect); Parainfluenza Virus 3 Not Detected (Not Detect); Parainfluenza Virus 4 Not Detected (Not Detect); Respiratory Syncytial Virus Not Detected (Not Detect); SARS- CoV-2 Not Detected (Not Detecte)
--- NOTE | 2022-05-04 12:48 | DI.CT.S_ITS ---
PROCEDURE: CT ANGIO CHEST PE PROTOCOL INDICATIONS: hypoxia TECHNIQUE: After the administration of intravenous contrast, 2 mm thick sections acquired from the pulmonary apices to the posterior costophrenic angles. 3-dimensional maximum intensity projection (MIP) coronal and sagittal reformats were then acquired through the thorax. For radiation dose reduction, the following was used: automated exposure control, adjustment of mA and/or kV according to patient size. COMPARISON: [facility], CT, CT ANGIO CHEST PE, 05/20/2021, 16:41. [facility], CT, CT ANGIO CHEST, 12/18/2021, 11:49. FINDINGS: Image quality: Excellent. Pulmonary arteries: Pulmonary arteries are normal in size, and demonstrate no intraluminal filling defects to suggest central pulmonary embolism. Lungs and pleura: A fear areas of distal mucus airway plugging. There is mild bronchial wall thickening. Right lower lobe pulmonary nodule measuring 0.7 cm, (5/154), unchanged since 05/20/2021. Right minor fissure pulmonary nodule measuring 0.5 cm, (5/161), unchanged. Mild ground-glass opacity in the right middle lobe. Small cyst at the apices. Right upper lobe calcified granuloma. No pleural effusions or pneumothorax. Central and peripheral airways are patent. Mediastinum: Heart size is normal, without pericardial effusion. No mediastinal or hilar adenopathy. Thoracic aorta is normal in caliber and enhancement. Esophagus is normal in caliber, without hiatal hernia. Bones and chest wall: ACDF. No suspicious bony lesions. Right 5-8th rib fractures with callus formation. Left thyroid gland appears absent. No axillary or supraclavicular adenopathy. Abdomen: Visualized upper abdominal solid organs appear normal in the early arterial phase of enhancement. Diverticulosis. IMPRESSION: 1. No pulmonary embolism. 2. Mild ground-glass opacity in the right middle lobe. This could represent infectious/inflammatory etiology. No pleural effusion. 3. A few small pulmonary nodules are stable. Largest in the right lower lobe measuring 0.7 cm is unchanged since April 2021. -Recommend follow-up CT chest in 12 months. 4. Healing right 5-8th rib fractures. Dictated by: Joe Palacio M.D. on 05/04/2022 at 14:13 Approved by: Joe Palacio M.D. on 05/04/2022 at 14:23
[2022-05-04 15:11] LABS: Troponin I < 0.012 ng/mL (0.01-0.034)
== END 2022-05-04 17:56 | disposition home or self-care (01) ==
PROVIDERS: Family Medicine; Emergency Provider Emergency Medicine; PCP Pediatrics
DX: J44.1 Chronic obstructive pulmonary disease with (acute) exacerbation (principal); R09.02 Hypoxemia; R07.9 Chest pain, unspecified; Z79.899 Other long term (current) drug therapy; Z20.822 Contact with and (suspected) exposure to COVID-19
CPT/HCPCS: 36415; 71045; 71275; 80053; 83605; 83880; 84145; 84439; 84443; 84481; 84484; 85025; 85610; 87040; 87633; 87635; 94660; 96374; 99284; C9803; J2930; J7613; Q9967

== ENCOUNTER → 2022-05-27 09:09 | Outpatient (CLI) | payer MEDICARE, SELFPAY ==
[2022-05-04 11:50] VITALS: PULSE 90; RESP 25; O2SAT 100
[2022-05-27 10:07] LABS: COVID19 -Nasal RAPID Negative (Negative)
== END ==
PROVIDERS: PCP Family Medicine; Referring Provider Internal Medicine; Visit Provider Internal Medicine
DX: Z20.822 Contact with and (suspected) exposure to COVID-19 (principal)
CPT/HCPCS: 87635; C9803

== ENCOUNTER → 2022-05-27 09:11 | Outpatient (CLI) | payer MEDICARE, SELFPAY ==
[2022-05-04 11:50] VITALS: PULSE 90; RESP 25; O2SAT 100
--- NOTE | 2022-06-02 08:16 | PM.PFT.1 ---
Pulmonary Function Test Referral & Results Date Patient Seen: 05/27/22 Requesting provider: Ayo Flowers Results: The spirometry demonstrates an FVC of 3.73 L which is 80% of predicted. The FEV1 was measured at 2.33 L which is 73% of predicted. The FEV1/FVC ratio was 63 which is 83% of predicted. Following the administration of bronchodilator there was a 22% improvement in FEF 25-75%. Lung volumes show an SVC of 3.55 L which is 83% of predicted. The diffusing capacity was measured at 19.32 which is 68% of predicted. The maximum voluntary ventilation was minimally reduced Interpretation: This study demonstrates mild obstructive lung disease based on reduction FEV1 and minimal reduction FEV1/FVC ratio. There is minimal evidence of benefit after bronchodilator administration most notably in small airway flow based on improvement in FEF 25-75% as above There is a mild reduction in lung volumes suggesting the presence of mild restrictive lung disease as well There is also [id number] reduction diffusing capacity suggesting disease at the capillary alveolar level Overall this is consistent with a diagnosis [id number] COPD Clinical correlation suggested
== END ==
LOC: RESP 09:11
PROVIDERS: PCP Family Medicine; Referring Provider Family Medicine; Visit Provider Family Medicine
DX: J44.9 Chronic obstructive pulmonary disease, unspecified (principal); F17.210 Nicotine dependence, cigarettes, uncomplicated; Z20.822 Contact with and (suspected) exposure to COVID-19
CPT/HCPCS: 87635; 94060; 94726; 94729; C9803

== ENCOUNTER → 2023-05-02 11:11 | Outpatient (CLI) | payer OTHER, SELFPAY ==
[2022-05-04 11:50] VITALS: PULSE 90; RESP 25; O2SAT 100
[2023-05-02 12:41] LABS: Hemoglobin A1C% w Est Avg Glu 5.6 % (4.0-6.0)
[2023-05-02 13:11] LABS: Alanine Aminotransferase 19 IU/L (<35); Albumin 4.3 g/dL (3.5-5.0); Albumin Globulin Ratio 1.3 (1.0-2.8); Alkaline Phosphatase 101 U/L (38-126); Aspartate Aminotransferase 25 IU/L (14-36); BUN Creatinine Ratio 12.8 (6-22); Bilirubin Total 0.6 mg/dL (0.2-1.3); Blood Urea Nitrogen 12 mg/dL (7-17); Calcium 9.3 mg/dL (8.4-10.2); Carbon Dioxide 27 mmol/L (22-32); Chloride 102 mmol/L (98-107); Cholesterol 174 mg/dL (140-199); Estimated Glomerular Filt Rate > 60 mL/min (>60); Globulin 3.2 g/dL (1.7-4.1); Glucose 99 mg/dL (80-110); HDL Cholesterol 59 mg/dL (40-60); HEMOLYSIS < 15 (0-50); LDL Cholesterol Calculated 99 mg/dL (<100); Potassium 4.4 mmol/L (3.4-5.1); Sodium 137 mmol/L (137-145); Total Protein 7.5 g/dL (6.3-8.2); Triglycerides 82 mg/dL (35-150)
[2023-05-02 13:40] LABS: TSH w/ Reflex to FT4 0.32 uIU/mL (0.47-4.68)
[2023-05-02 14:13] LABS: Free T4, Direct Thyroxine 1.18 ng/dL (0.78-2.19)
[2023-05-03 15:17] LABS: HIV 1 & 2 Ab/Ag 4th Gen Combo NEGATIVE (NEGATIVE); Hep C Virus Ab w/Reflex Quant NEGATIVE s/c (NEGATIVE)
== END ==
PROVIDERS: PCP Family Medicine; Referring Provider Family Medicine; Visit Provider Family Medicine
DX: Z11.4 Encounter for screening for human immunodeficiency virus [HIV] (principal); E78.5 Hyperlipidemia, unspecified; I20.1 Angina pectoris with documented spasm; I10 Essential (primary) hypertension; Z11.59 Encounter for screening for other viral diseases
CPT/HCPCS: 36415; 80053; 80061; 83036; 84439; 84443; 86803; 87389

== ENCOUNTER → 2023-11-15 11:22 | Outpatient (CLI) | payer OTHER, SELFPAY ==
[2023-11-15 11:15] VITALS: PULSE 90; RESP 25; O2SAT 100
[2023-11-15 13:32] LABS: BUN Creatinine Ratio 13.5 (6-22); Blood Urea Nitrogen 12 mg/dL (7-17); Calcium 8.4 mg/dL (8.4-10.2); Carbon Dioxide 29 mmol/L (22-32); Chloride 109 mmol/L (98-107); Estimated Glomerular Filt Rate > 60 mL/min (>60); Glucose 93 mg/dL (80-110); HEMOLYSIS < 15 (0-50); Potassium 4.8 mmol/L (3.4-5.1); Sodium 141 mmol/L (137-145)
[2023-11-15 13:51] LABS: TSH w/ Reflex to FT4 2.37 uIU/mL (0.47-4.68)
== END ==
PROVIDERS: PCP Family Medicine; Referring Provider Family Medicine; Visit Provider Family Medicine
DX: Z00.00 Encounter for general adult medical examination without abnormal findings (principal); I10 Essential (primary) hypertension; J43.9 Emphysema, unspecified; E03.9 Hypothyroidism, unspecified; Z63.8 Other specified problems related to primary support group
CPT/HCPCS: 36415; 80048; 84443

== ENCOUNTER 2024-03-02 13:16 | Inpatient (IN) | payer OTHER, SELFPAY ==
[2023-11-15 11:15] VITALS: PULSE 90; RESP 25; O2SAT 100
[2024-03-02] VITALS (26 sets, daily range): BP systolic 91–174; BP diastolic 55–80; PULSE 70–94; RESP 10–29; TEMP 32–36.6; O2SAT 90–100; BMI 24.4; BMI 22.6
--- NOTE | 2024-03-02 13:33 | DI.RAD.S_ITS ---
PROCEDURE: XR CHEST 1V INDICATIONS: wheezing TECHNIQUE: One view of the chest was acquired. COMPARISON: [facility], CR, XR CHEST 1V, 05/04/2022, 11:15. FINDINGS: Surgical changes and devices: None. Lungs and pleura: Lungs are clear. No pleural effusions or pneumothorax. Mediastinum: Mediastinal contours appear normal. Heart size is normal. Bones and chest wall: No suspicious bony lesions. Overlying soft tissues appear unremarkable. IMPRESSION: No acute pulmonary process. Dictated by: Chrystal Agrawal M.D. on 03/02/2024 at 14:32 Approved by: Chrystal Agrawal M.D. on 03/02/2024 at 14:32
[2024-03-02] MEDS: ALBUTEROL/IPRATROPIUM 3 ML AMPUL INH ×3 (13:39→22:42)
[2024-03-02] MEDS: ALBUTEROL/IPRATROPIUM 3 ML AMPUL 6 ML INH (13:51)
[2024-03-02 13:57] LABS: Add Manual Diff / Slide Review NO; Basophils Absolute Auto 100 /uL (0-100); Basophils Percent Auto 1.1 % (0-2); Eosinophils Absolute Auto 500 /uL (0-450); Eosinophils Percent Auto 7.7 % (2-4); Hematocrit 40.5 % (36-46); Hemoglobin 13.3 g/dL (12.0-16.0); Lymphocytes Absolute Auto 2700 /uL (1100-4500); Lymphocytes Percent Auto 40.4 % (25-40); Mean Corpuscular Hemoglobin 29.9 PG (26-34); Mean Corpuscular Volume 90.8 fL (80-100); Monocytes Absolute Auto 700 /uL (0-900); Monocytes Percent Auto 10.4 % (3-14); Neutrophils Absolute Auto 2700 /uL (1500-7000); Neutrophils Percent Auto 40.4 % (50-75); Platelet Count 293 X10^3/uL (150-400); Red Blood Cell Count 4.46 X10^6/uL (4.0-5.2); Red Cell Distribution Width 13.8 % (11.6-14.8); White Blood Cell Count 6.7 X10^3/uL (4.5-11.0)
--- NOTE | 2024-03-02 14:00 | ED.SOB ---
HPI - SOB/Dyspnea General Chief Complaint: Shortness of Breath/Dyspnea Stated Complaint: SoB Time Seen by Provider: 03/02/24 14:00 History of Present Illness HPI Narrative: 63-year-old female with history of COPD, prior BiPAP experience with exacerbation, not intubated, history of 50+ smoking pack years, still smoking, not usually on home oxygen, has 2 days duration of cough productive of white-yellow sputum, increasing shortness of breath. No leg pain or swelling symptoms. Related Data Home Medications Medication Instructions Recorded Confirmed aspirin 81 mg tablet,delayed 81 mg PO DAILY 09/29/18 11/15/23 release multivitamin 1 tab PO DAILY 11/10/21 11/15/23 Previous Rx's Medication Instructions Recorded albuterol sulfate 90 mcg/actuation 2 puff inhalation Q4-6H PRN 01/15/22 aerosol inhaler shortness of breath or wheezing #6.7 grams hydroxyzine HCl 25 mg tablet 25 mg PO Q6-8H PRN anxiety #90 tabs 06/04/[address] permit #1 ea 11/02/22 olopatadine 0.1 % eye drops 1 drp EYE-BOTH BID PRN allergies 11/02/22 #5 mL amlodipine 5 mg tablet 5 mg PO DAILY coronary spasm and 05/02/23 blood pressure #90 tabs atorvastatin 20 mg tablet 20 mg PO ONCE PM for cholesterol 05/02/23 #90 tabs bupropion HCl 300 mg 24 hr tablet, 300 mg PO QAM depression #90 tabs 05/02/23 extended release (Wellbutrin XL) cyclobenzaprine 5 mg tablet 5 mg PO Q8H PRN muscle spasm #60 05/02/23 tabs escitalopram oxalate 20 mg tablet 20 mg PO DAILY #90 tabs 05/02/23 (Lexapro) gabapentin 100 mg capsule 100 mg PO Q8H PRN pain #90 caps 05/02/23 metoprolol succinate 25 mg 12.5 mg (1/2 x 25 mg) PO DAILY #90 05/02/23 tablet,extended release 24 hr tabs Synthroid 125 mcg tablet 125 mcg PO DAILY #90 tabs 09/26/23 (levothyroxine) tiotropium bromide 18 mcg capsule 1 cap inhalation DAILY COPD #30 10/14/23 with inhalation device (Spiriva inhalations with HandiHaler) fluticasone propionate 50 2 spray intranasal DAILY PRN nasal 11/15/23 mcg/actuation nasal congestion #16 grams spray,suspension (Flonase Allergy Relief) Allergies Allergy/AdvReac Type Severity Reaction Status Date / Time No Known Drug Allergies Allergy Verified 03/02/24 13:27 Review of Systems Review of Systems Narrative: see HPI Patient History Medical History Hypothyroidism Encounter for subsequent annual wellness visit (AWV) in Medicare patient Benign essential HTN Hyperlipidemia Chronic low back pain SATYA (generalized anxiety disorder) Depression Emphysema lung Coronary vasospasm Elevated CK Tobacco use Social History household members: spouse Smoking Status: Current every day smoker Tobacco: How many years used: 40 alcohol intake: current substance use type: marijuana Smoking Status: Current every day smoker alcohol intake frequency: other Substance Use Type: does not use Exam Narrative Exam Narrative: GENERAL: Well-developed patient, in mild distress. HEAD: Atraumatic. Normocephalic. EYES: Pupils equal round and reactive. Extraocular motions intact. No scleral icterus. No injection or drainage. ENT: Nose without bleeding, purulent drainage. Throat without erythema, tonsillar hypertrophy or exudate. Airway patent. NECK: Trachea midline. Non tender CARDIOVASCULAR: Fast rate, regular rhythm, without murmurs, gallops, or rubs. RESPIRATORY: Respiratory distress, with suprasternal and intercostal retractions, speaking short of full sentences, but alert looking around. Bibasilar crackles, no significant wheezing. GASTROINTESTINAL: Abdomen soft, non-tender, nondistended. EXTREMITIES: No edema or joint tenderness. BACK: Nontender without deformity or crepitance. No flank tenderness. NEURO: AOx3. Motor functions grossly nonfocal SKIN: No rash or erythema of visible areas Initial Vital Signs Initial Vital Signs: Vital Signs Temperature 97.8 F 03/02/24 13:27 Pulse Rate 81 03/02/24 13:27 Respiratory Rate 20 03/02/24 13:27 Blood Pressure 123/65 03/02/24 13:27 Pulse Oximetry 98 03/02/24 13:27 Oxygen Delivery Method Room Air 03/02/24 13:27 Course Orders Ordered: ED Orders 03/02/24 13:33 XR chest 1V Stat 03/02/24 13:34 Covid-19 + FLU A/B + RSV - PCR Stat 03/02/24 13:38 EKG-12 Lead Stat Measure peak expiratory flow ONCE RT Consult Eval and Treat NOW 03/02/24 13:46 Complete Blood Count AUTO DIFF Stat Comprehensive Metabolic Panel Stat Lactate (Lactic Acid) Stat NT-proBNP (BNP-Adult 18+) Stat Prothrombin Time INR Stat Troponin I Stat 03/02/24 14:04 Lactate (Lactic Acid) Stat Sputum Culture Stat BiPAP Ventilatory Support RT PROTOCOL 03/02/24 14:10 Arterial Blood Gas STAT 03/02/24 14:11 BiPAP Ventilatory Support RT PROTOCOL 03/02/24 14:15 Blood Culture Stat Acetaminophen (Acetaminophen 325 Mg Tablet) 650 mg PO Q6H PRN PRN Reason: Fever/Mild Pain (1-3) Albuterol (Albuterol 2.5 Mg/3 Ml Neb (Adult)) 2.5 mg INH [id number] PRN PRN Reason: Shortness Of Breath Or Wheezing Albuterol/Ipratropium (Albuterol/Ipratropium 3 Ml Ampul) 3 ml INH [id number] [facility] Last Admin: 03/02/24 19:07 Dose: 3 ml Documented By: Bisacodyl (Bisacodyl 5 Mg Tablet) 10 mg PO DAILY PRN PRN Reason: Constipation Calcium Carbonate (Calcium Carbonate 500 Mg Tab) 1,000 mg PO Q4HR PRN PRN Reason: Dyspepsia Azithromycin 500 mg/ Dextrose 250 mls @ 250 mls/hr IV Q24H [facility] Last Infusion: 03/02/24 18:49 Dose: Infused Documented By: Admin: 03/02/24 17:28 Dose: 250 mls/hr Documented By: CORDELL Methylprednisolone (Methylprednisolone 125 Mg/2 Ml Vial) 60 mg IV Q6HR [facility] Last Admin: 03/02/24 18:48 Dose: 60 mg Documented By: CORDELL Naloxone HCl (Naloxone 0.4 Mg/Ml Vial) 0.2 mg IV Q2MIN PRN PRN Reason: Opiate Reversal Ondansetron HCl (Ondansetron 4 Mg/2 Ml Inj) 4 mg IV Q8HR PRN PRN Reason: Nausea And Vomiting Discontinued Medications Albuterol/Ipratropium (Albuterol/Ipratropium 3 Ml Ampul) 3 ml INH NOW ONE Stop: 03/02/24 13:36 Last Admin: 03/02/24 13:39 Dose: 3 ml Documented By: MADDIE Albuterol/Ipratropium (Albuterol/Ipratropium 3 Ml Ampul) 6 ml INH NOW ONE Stop: 03/02/24 13:50 Last Admin: 03/02/24 13:51 Dose: 6 ml Documented By: MADDIE Ceftriaxone Sodium 1,000 mg/ (Sodium Chloride) 100 mls @ 200 mls/hr IV NOW ONE Stop: 03/02/24 14:05 Last Infusion: 03/02/24 15:07 Dose: Infused Documented By: Admin: 03/02/24 14:25 Dose: 200 mls/hr Documented By: BS Doxycycline Hyclate 100 mg/ (Sodium Chloride) 100 mls @ 100 mls/hr IV NOW ONE Stop: 03/02/24 14:05 Last Infusion: 03/02/24 16:20 Dose: Infused Documented By: Admin: 03/02/24 15:15 Dose: 100 mls/hr Documented By: MILAGRO Magnesium Sulfate (Magnesium Sulfate) 2 gm in 50 mls @ 150 mls/hr IV NOW ONE Stop: 03/02/24 14:30 Last Infusion: 03/02/24 16:09 Dose: Infused Documented By: MILAGRO Co-signed By: RL Admin: 03/02/24 14:31 Dose: 150 mls/hr Documented By: MILAGRO Co-signed By: CTS Ipratropium Patterson (Ipratropium 0.5 Mg/2.5 Ml Neb) 0.5 mg INH RTQ4HR BONNIE Methylprednisolone (Methylprednisolone 125 Mg/2 Ml Vial) 125 mg IV NOW ONE Stop: 03/02/24 14:04 Last Admin: 03/02/24 14:16 Dose: 125 mg Documented By: MILAGRO Vital Signs Vital signs: Vital Signs - 8 hr 03/02/24 13:27 03/02/24 13:39 03/02/24 13:51 Temperature 97.8 F Pulse Rate 81 71 73 Respiratory Rate 20 22 16 Blood Pressure 123/65 Pulse Oximetry 98 94 94 Oxygen Delivery Method Room Air Room Air Room Air Oxygen Flow Rate Fraction of Inspired Oxygen 03/02/24 13:55 03/02/24 13:56 03/02/24 13:56 Temperature Pulse Rate 74 70 Respiratory Rate 15 Blood Pressure 174/77 H Pulse Oximetry 99 99 Oxygen Delivery Method BiPAP BiPAP Oxygen Flow Rate Fraction of Inspired Oxygen 03/02/24 14:00 03/02/24 14:01 03/02/24 14:01 Temperature Pulse Rate 75 74 Respiratory Rate 18 16 Blood Pressure 147/76 H Pulse Oximetry 99 99 Oxygen Delivery Method BiPAP BiPAP Oxygen Flow Rate Fraction of Inspired Oxygen 03/02/24 14:16 03/02/24 14:16 03/02/24 14:19 Temperature Pulse Rate 85 89 Respiratory Rate 27 H 26 H Blood Pressure 91/67 Pulse Oximetry 100 100 Oxygen Delivery Method BiPAP BiPAP Oxygen Flow Rate Fraction of Inspired Oxygen 03/02/24 14:19 03/02/24 14:20 03/02/24 14:20 Temperature Pulse Rate 89 Respiratory Rate 26 H Blood Pressure 130/74 91/67 Pulse Oximetry 100 Oxygen Delivery Method BiPAP Oxygen Flow Rate Fraction of Inspired Oxygen 25 03/02/24 14:20 03/02/24 14:30 03/02/24 14:30 Temperature Pulse Rate 94 H Respiratory Rate 29 H Blood Pressure 132/77 136/80 Pulse Oximetry 100 Oxygen Delivery Method BiPAP Oxygen Flow Rate Fraction of Inspired Oxygen 03/02/24 14:37 03/02/24 14:51 03/02/24 14:51 Temperature Pulse Rate 82 Respiratory Rate 22 Blood Pressure 133/60 Pulse Oximetry 100 95 Oxygen Delivery Method Nasal Cannula Nasal Cannula Oxygen Flow Rate 2 2 Fraction of Inspired Oxygen 03/02/24 15:00 03/02/24 15:00 03/02/24 15:10 Temperature Pulse Rate 75 78 Respiratory Rate 23 22 Blood Pressure 105/62 Pulse Oximetry 95 94 Oxygen Delivery Method Nasal Cannula Nasal Cannula Oxygen Flow Rate 2 2 Fraction of Inspired Oxygen 03/02/24 15:10 03/02/24 15:20 03/02/24 15:20 Temperature Pulse Rate 79 Respiratory Rate 22 Blood Pressure 123/74 136/69 Pulse Oximetry 95 Oxygen Delivery Method Nasal Cannula Oxygen Flow Rate 2 Fraction of Inspired Oxygen 03/02/24 15:30 03/02/24 15:30 03/02/24 15:40 Temperature Pulse Rate 75 77 Respiratory Rate 24 20 Blood Pressure 109/57 L Pulse Oximetry 90 L 94 Oxygen Delivery Method Nasal Cannula Nasal Cannula Oxygen Flow Rate 2 2 Fraction of Inspired Oxygen 03/02/24 15:40 Temperature Pulse Rate Respiratory Rate Blood Pressure 114/55 L Pulse Oximetry Oxygen Delivery Method Oxygen Flow Rate Fraction of Inspired Oxygen MDM - SOB/Dyspnea Lab Data Attestation: I reviewed the patient's lab results. 03/02/24 13:46 03/02/24 13:46 Labs: Lab Results 03/02/24 03/02/24 03/02/24 Range/Units 13:34 13:46 14:29 WBC 6.7 (4.5-11.0) X10^3/uL RBC 4.46 (4.0-5.2) X10^6/uL Hgb 13.3 (12.0-16.0) g/dL Hct 40.5 (36-46) % MCV 90.8 (80-100) fL MCH 29.9 (26-34) PG MCHC 33.0 (30-36) % RDW 13.8 (11.6-14.8) % Plt Count 293 (150-400) X10^3/uL Neut % (Auto) 40.4 L (50-75) % Lymph % (Auto) 40.4 H (25-40) % Pay[place] % (Auto) 10.4 (3-14) % Eos % (Auto) 7.7 H (2-4) % Baso % (Auto) 1.1 (0-2) % Neut # (Auto) 2700 (7451-3272) /uL Lymph # (Auto) 2700 (5230-8179) /uL [place] # (Auto) 700 (0-900) /uL Eos # (Auto) 500 H (0-450) /uL Baso # (Auto) 100 (0-100) /uL PT 11.9 (9.4-12.5) SECONDS INR 1.0 (0.9-1.3) ABG Sample Site Right radial ABG pH 7.64 H* (7.35-7.45) ABG pCO2 15.8 L* (35-45) mmHg ABG pO2 136 H (80-100) mmHg ABG HCO3 17 L (23-27) mmol/L ABG Total CO2 16 L (23-27) mmol/L ABG O2 Saturation 100 (95-100) % ABG Base Excess -1.2 (-2-3) mmol/L Sanket Test Positive Respiration Rate 10 O2 Delivery Device Bipap FiO2 % 25.0 % % PEEP or CPAP 6 Sodium 136 L (137-145) mmol/L Potassium 3.9 (3.4-5.1) mmol/L Chloride 107 (98-107) mmol/L Carbon Dioxide 20 L (22-32) mmol/L BUN 18 H (7-17) mg/dL Creatinine 0.94 (0.52-1.04) mg/dL Estimated GFR > 60 (>60) mL/min BUN/Creatinine Ratio 19.1 (6-22) Glucose 94 (80-110) mg/dL Lactate 2.0 (0.7-2.1) mmol/L Calcium 9.1 (8.4-10.2) mg/dL Total Bilirubin 0.5 (0.2-1.3) mg/dL AST 26 (14-36) IU/L ALT 20 (<35) IU/L Alkaline Phosphatase 95 (38-126) U/L Troponin I < 0.012 (0.01-0.034) ng/mL NT-Pro-B Natriuret Pep 67 (<125) pg/mL Total Protein 7.4 (6.3-8.2) g/dL Albumin 4.2 (3.5-5.0) g/dL Globulin 3.2 (1.7-4.1) g/dL Albumin/Globulin Ratio 1.3 (1.0-2.8) SARS-CoV-2 (PCR) Negative (Negative) Influenza A (RT-PCR) Flu a negative (NEGATIVE) Influenza B (RT-PCR) Flu b negative (NEGATIVE) RSV (PCR) Negative (Negative) Imaging Data Chest x-ray: Radiologist's Impression: [address] [address] XRay Report Signed Patient: Sole Ramos MR#: [id number] : 1960 Acct:[id number] Age/Sex: 63 / F Date of Service: 03/02/24 Loc: ED Accession Number: [id number] Procedure: XR chest 1V Ordering Provider: Corwin Hairston MD PROCEDURE: XR CHEST 1V INDICATIONS: wheezing TECHNIQUE: One view of the chest was acquired. COMPARISON: Merged With [facility], , XR CHEST 1V, 05/04/2022, 11:15. FINDINGS: Surgical changes and devices: None. Lungs and pleura: Lungs are clear. No pleural effusions or pneumothorax. Mediastinum: Mediastinal contours appear normal. Heart size is normal. Bones and chest wall: No suspicious bony lesions. Overlying soft tissues appear unremarkable. IMPRESSION: No acute pulmonary process. Dictated by: Chrystal Agrawal M.D. on 03/02/2024 at 14:32 Approved by: Chrystal Agrawal M.D. on 03/02/2024 at 14:32 MDM Narrative Medical decision making narrative: Respiratory distress, new hypoxia, history of COPD, recent coughing, bibasilar crackles, no lower extremity edema. Not able to speak in full sentences. BiPAP initiated with respiratory therapy, SVN continuous initiated with albuterol and Atrovent, IV Solu-Medrol 125 mg, IV magnesium 2 g. ABG requested once patient on BiPAP established. Blood cultures requested, respiratory panel, sputum if inducible. IV ceftriaxone, IV doxycycline. 1430, ABG still to be drawn, patient seems a little more comfortable on BiPAP, alert looking around. Initial ABG shows respiratory alkalosis, pH 7.58, pCO2 15, PaO2 130s, we will transition off BiPAP to high-flow nasal cannula, to wean as tolerated Continued improvement, on nasal canula. Consult hospitalist regarding admit Discussed with hospitalist Dr Coe, accepts patient from admission Critical Care Time Critical Care Time Critical Care Time: Yes Total Critical Care Time: 35 Attestation: The high probability of a clinically significant, sudden or life threatening deterioration of the [cardiopulmonary] system(s) required my full and direct attention, intervention and personal management. The aggregate critical care time was [35] minutes. This time is in addition to time spent performing reported procedures but includes the following: [x] Data Review and interpretation [x] Patient assessment and monitoring of vital signs [x] Documentation [x] Medication orders and management Discharge Plan Departure Patient Disposition: Admitted As Inpatient Clinical Impression: Hypoxia, Acute respiratory distress, COPD exacerbation Admit Date/Time: 03/02/24 15:40 Admit Provider: Sanket Coe
[2024-03-02 14:02] LABS: Prothrombin Time 11.9 SECONDS (9.4-12.5)
[2024-03-02 14:06] LABS: Alanine Aminotransferase 20 IU/L (<35); Albumin 4.2 g/dL (3.5-5.0); Albumin Globulin Ratio 1.3 (1.0-2.8); Alkaline Phosphatase 95 U/L (38-126); Aspartate Aminotransferase 26 IU/L (14-36); BUN Creatinine Ratio 19.1 (6-22); Bilirubin Total 0.5 mg/dL (0.2-1.3); Blood Urea Nitrogen 18 mg/dL (7-17); Calcium 9.1 mg/dL (8.4-10.2); Carbon Dioxide 20 mmol/L (22-32); Chloride 107 mmol/L (98-107); Estimated Glomerular Filt Rate > 60 mL/min (>60); Globulin 3.2 g/dL (1.7-4.1); Glucose 94 mg/dL (80-110); HEMOLYSIS < 15 (0-50); Potassium 3.9 mmol/L (3.4-5.1); Sodium 136 mmol/L (137-145); Total Protein 7.4 g/dL (6.3-8.2)
[2024-03-02 14:16] LABS: Influenza A - CEPHEID Flu A NEGATIVE (NEGATIVE); Influenza B - CEPHEID Flu B NEGATIVE (NEGATIVE); Respiratory Syncytial Virus Negative (Negative)
[2024-03-02] MEDS: methylPREDNISolone 125 MG/2 ML VIAL IV (14:16)
[2024-03-02 14:17] LABS: COVID-19 CEPHEID 4-PLEX PCR Negative (Negative)
[2024-03-02 14:18] LABS: NT-proBNP (BNP-Adult 18+) 67 pg/mL (<125); Troponin I < 0.012 ng/mL (0.01-0.034)
[2024-03-02] MEDS: cefTRIAXone 1,000 MG in SODIUM CHLORIDE 0.9% 100 ML 200 MG IV (14:25)
[2024-03-02] MEDS: MAGNESIUM SULFATE 2 GM/50 ML PIGGYBACK IV (14:31)
[2024-03-02 14:35] LABS: Allen Test for ABG Passed? Positive; Base Excess ABG -1.2 mmol/L (-2-3); Blood Gas Collection Site Right Radial; Delivery System BiPAP; HCO3 ABG 17 mmol/L (23-27); Oxygen Saturation ABG 100 % (95-100); PCO2 ABG 15.8 mmHg (35-45); PEEP 6; PO2 ABG 136 mmHg (80-100); Respiratory Rate 10; TCO2 ABG 16 mmol/L (23-27); pH ABG 7.64 (7.35-7.45)
[2024-03-02] MEDS: DOXYCYCLINE 100 MG in SODIUM CHLORIDE 0.9% 100 ML IV (15:15)
--- NOTE | 2024-03-02 15:40 | PM.HP.1 ---
History of Present Illness History of Present Illness Date Patient Seen: 03/02/24 Chief complaint: SoB Narrative: This is a 63-year-old female with a history of tobacco use and COPD he was nearly 50 year pack year history. She presents with increased dyspnea for 2 days following been exposed to her grandchildren who had URIs. She was a cough which is mostly nonproductive. She has been more wheezy despite using her inhalers on an escalated basis. She ultimately became quite fatigued and presented to the ED today. There she was in severe respiratory distress and was placed on BiPAP initially. She was able to wean off from BiPAP after a short time and he was comfortable on 2-3 L of oxygen N/C. She denies any chest pain, or palpitations. No recent nausea, vomiting, or diarrhea. She also denies any abdominal pain. She was not had a bowel movement today. Level of care: She was never been intubated but would be okay with short-term intubation for reversible problems. [facility] Medical History Hypothyroidism Encounter for subsequent annual wellness visit (AWV) in Medicare patient Benign essential HTN Hyperlipidemia Chronic low back pain SATYA (generalized anxiety disorder) Depression Emphysema lung Coronary vasospasm Elevated CK Tobacco use Social History Smoking Status: Current every day smoker Tobacco: How many years used: 40 alcohol intake: current substance use type: marijuana Meds Home Medications and Allergies Home Medications Medication Instructions Recorded Confirmed Type aspirin 81 mg tablet,delayed 81 mg PO DAILY 09/29/18 11/15/23 History release multivitamin 1 tab PO DAILY 11/10/21 11/15/23 History albuterol sulfate 90 mcg/actuation 2 puff inhalation Q4-6H PRN 01/15/22 11/15/23 Rx aerosol inhaler shortness of breath or wheezing #6.7 grams hydroxyzine HCl 25 mg tablet 25 mg PO Q6-8H PRN anxiety #90 tabs 06/04/22 11/15/[address]abled [address] permit #1 ea 11/02/22 11/15/23 Rx olopatadine 0.1 % eye drops 1 drp EYE-BOTH BID PRN allergies 11/02/22 11/15/23 Rx #5 mL amlodipine 5 mg tablet 5 mg PO DAILY coronary spasm and 05/02/23 11/15/23 Rx blood pressure #90 tabs atorvastatin 20 mg tablet 20 mg PO ONCE PM for cholesterol 05/02/23 11/15/23 Rx #90 tabs bupropion HCl 300 mg 24 hr tablet, 300 mg PO QAM depression #90 tabs 05/02/23 11/15/23 Rx extended release (Wellbutrin XL) cyclobenzaprine 5 mg tablet 5 mg PO Q8H PRN muscle spasm #60 05/02/23 11/15/23 Rx tabs escitalopram oxalate 20 mg tablet 20 mg PO DAILY #90 tabs 05/02/23 11/15/23 Rx (Lexapro) gabapentin 100 mg capsule 100 mg PO Q8H PRN pain #90 caps 05/02/23 11/15/23 Rx metoprolol succinate 25 mg 12.5 mg (1/2 x 25 mg) PO DAILY #90 05/02/23 11/15/23 Rx tablet,extended release 24 hr tabs Synthroid 125 mcg tablet 125 mcg PO DAILY #90 tabs 09/26/23 11/15/23 Rx (levothyroxine) tiotropium bromide 18 mcg capsule 1 cap inhalation DAILY COPD #30 10/14/23 11/15/23 Rx with inhalation device (Spiriva inhalations with HandiHaler) fluticasone propionate 50 2 spray intranasal DAILY PRN nasal 11/15/23 11/15/23 Rx mcg/actuation nasal congestion #16 grams spray,suspension (Flonase Allergy Relief) Allergies Allergy/AdvReac Type Severity Reaction Status Date / Time No Known Drug Allergies Allergy Verified 03/02/24 13:27 Review of Systems Review of Systems Narrative: All else reviewed and otherwise unremarkable except as noted in the history and physical. Exam Vital Signs (past 8 hours): - 03/02/24 13:27 03/02/24 13:39 03/02/24 13:51 Temperature 97.8 F Pulse Rate 81 71 73 Respiratory Rate 20 22 16 Blood Pressure 123/65 Pulse Oximetry 98 94 94 Oxygen Delivery Method Room Air Room Air Room Air Oxygen Flow Rate Fraction of Inspired Oxygen 03/02/24 13:55 03/02/24 13:56 03/02/24 13:56 Temperature Pulse Rate 74 70 Respiratory Rate 15 Blood Pressure 174/77 H Pulse Oximetry 99 99 Oxygen Delivery Method BiPAP BiPAP Oxygen Flow Rate Fraction of Inspired Oxygen 03/02/24 14:00 03/02/24 14:01 03/02/24 14:01 Temperature Pulse Rate 75 74 Respiratory Rate 18 16 Blood Pressure 147/76 H Pulse Oximetry 99 99 Oxygen Delivery Method BiPAP BiPAP Oxygen Flow Rate Fraction of Inspired Oxygen 03/02/24 14:16 03/02/24 14:16 03/02/24 14:19 Temperature Pulse Rate 85 89 Respiratory Rate 27 H 26 H Blood Pressure 91/67 Pulse Oximetry 100 100 Oxygen Delivery Method BiPAP BiPAP Oxygen Flow Rate Fraction of Inspired Oxygen 03/02/24 14:19 03/02/24 14:20 03/02/24 14:20 Temperature Pulse Rate 89 Respiratory Rate 26 H Blood Pressure 130/74 91/67 Pulse Oximetry 100 Oxygen Delivery Method BiPAP Oxygen Flow Rate Fraction of Inspired Oxygen 25 03/02/24 14:20 03/02/24 14:30 03/02/24 14:30 Temperature Pulse Rate 94 H Respiratory Rate 29 H Blood Pressure 132/77 136/80 Pulse Oximetry 100 Oxygen Delivery Method BiPAP Oxygen Flow Rate Fraction of Inspired Oxygen 03/02/24 14:37 Temperature Pulse Rate Respiratory Rate Blood Pressure Pulse Oximetry 100 Oxygen Delivery Method Nasal Cannula Oxygen Flow Rate 2 Fraction of Inspired Oxygen Fraction of Inspired Oxygen 25 Oxygen Delivery Method Nasal Cannula Oxygen Flow Rate 2 Narrative Exam Narrative: NAD, alert and oriented, fluent speech, calm. On 2 L of O2 nasal cannula Normocephalic skull, EOMI, anicteric sclera, symmetric pupils. Oropharynx unremarkable, no droop. Neck supple, midline trachea, no adenopathy. Lungs are with diminished breath sounds and expiratory wheezing as well as scattered rhonchi. Normal rate and effort. Heart regular, no murmur gallop or rub. Abdomen is soft, non distended and non tender. Extremities are free of edema. Skin is free of rash or lesions. Joints are not swollen or deformed. Judgment appears to be normal. Objective Imaging Chest x-ray: Radiologist's impression: No acute pulmonary process. Labs 03/02/24 13:46 03/02/24 13:46 Labs: Laboratory Results - last 24 hr 03/02/24 03/02/24 03/02/24 13:34 13:46 14:29 WBC 6.7 RBC 4.46 Hgb 13.3 Hct 40.5 MCV 90.8 MCH 29.9 MCHC 33.0 RDW 13.8 Plt Count 293 Neut % (Auto) 40.4 L Lymph % (Auto) 40.4 H Tucker % (Auto) 10.4 Eos % (Auto) 7.7 H Baso % (Auto) 1.1 Neut # (Auto) 2700 Lymph # (Auto) 2700 Tucker # (Auto) 700 Eos # (Auto) 500 H Baso # (Auto) 100 PT 11.9 INR 1.0 ABG Sample Site Right radial ABG pH 7.64 H* ABG pCO2 15.8 L* ABG pO2 136 H ABG HCO3 17 L ABG Total CO2 16 L ABG O2 Saturation 100 ABG Base Excess -1.2 Sanket Test Positive Respiration Rate 10 O2 Delivery Device Bipap FiO2 % 25.0 % PEEP or CPAP 6 Sodium 136 L Potassium 3.9 Chloride 107 Carbon Dioxide 20 L BUN 18 H Creatinine 0.94 Estimated GFR > 60 BUN/Creatinine Ratio 19.1 Glucose 94 Lactate 2.0 Calcium 9.1 Total Bilirubin 0.5 AST 26 ALT 20 Alkaline Phosphatase 95 Troponin I < 0.012 NT-Pro-B Natriuret Pep 67 Total Protein 7.4 Albumin 4.2 Globulin 3.2 Albumin/Globulin Ratio 1.3 SARS-CoV-2 (PCR) Negative Influenza A (RT-PCR) Flu a negative Influenza B (RT-PCR) Flu b negative RSV (PCR) Negative Assessment & Plan Assessment & Plan narrative: 1. Acute hypoxic respiratory failure, present on admission and active. 2. COPD exacerbation, present on admission and active. 3. Tobacco dependence, present on admission and active. 4. Hypertension, present on admission and active. 5. Hyperlipidemia, present on admission and active. 6. GERD, present on admission and active. 7. Coronary vasospasm, present on admission and stable. PLAN: -continue oxygen and wean as able. -IV steroids and bronchodilators scheduled and as needed. -empiric antibiotics. -telemetry. -resume usual blood pressure medications and monitor. Inpatient status, anticipate 2 midnights stay in the hospital to treat her medical problem. DELMY is March 04 Full resuscitation. Time-Based Coding :: 35 min spent with patient and on the chart (including review of chart, obtaining history, exam, reviewing outside data, placing orders, documenting exam and treatment plan, and counseling patient) on 03/02. Quality MIPS - Admit I confirm the patient?s Advance Care Plan is present, Code status is documented, Surrogate decision maker is in patient?s record [If Yes, STOP here]: Yes [facility] - Meds 'Current medications' to include all prescriptions, [id number] products, herbals, cannabis/cannabidiol products, and vitamin/mineral/dietary (nutritional) supplements. I have utilized all available resources to obtain, update, or review the patient?s current medications. [If Yes, STOP here]: Yes
[2024-03-02] MEDS: AZITHROMYCIN 500 MG in DEXTROSE 5% IN WATER 250 ML 250 MG IV (17:28)
--- NOTE | 2024-03-02 18:16 | PC.NURSE ---
Patient is on 1L of o2 and she is satting in the 90s. Her lung sounds are with wheezes ins/exp upon auscultation. Azythromycin iv antibiotic infusing now and patient is tolerating this well. She is also getting iv steroids and had a good appetite at dinner. Resting comfortably in bed. is going to bring in patients med list.
[2024-03-02] MEDS: methylPREDNISolone 125 MG/2 ML VIAL 60 MG IV (18:48)
[2024-03-03] VITALS: BP 100/51; PULSE 88; RESP 18; O2SAT 94
[2024-03-03] MEDS: methylPREDNISolone 125 MG/2 ML VIAL 60 MG IV ×2 (00:10→06:29)
[2024-03-03 04:00] VITALS: BP 108/59; PULSE 70; RESP 20; O2SAT 94
[2024-03-03 04:59] LABS: Add Manual Diff / Slide Review NO; Basophils Absolute Auto 0 /uL (0-100); Basophils Percent Auto 0.2 % (0-2); Eosinophils Absolute Auto 0 /uL (0-450); Hematocrit 37.7 % (36-46); Hemoglobin 12.6 g/dL (12.0-16.0); Lymphocytes Absolute Auto 1100 /uL (1100-4500); Lymphocytes Percent Auto 11.5 % (25-40); Mean Corpuscular HGB Conc 33.3 % (30-36); Mean Corpuscular Volume 90.1 fL (80-100); Monocytes Absolute Auto 300 /uL (0-900); Monocytes Percent Auto 3.2 % (3-14); Neutrophils Absolute Auto 7900 /uL (1500-7000); Neutrophils Percent Auto 85.1 % (50-75); Platelet Count 310 X10^3/uL (150-400); Red Blood Cell Count 4.19 X10^6/uL (4.0-5.2); Red Cell Distribution Width 13.8 % (11.6-14.8); White Blood Cell Count 9.2 X10^3/uL (4.5-11.0)
[2024-03-03 05:11] LABS: BUN Creatinine Ratio 25.6 (6-22); Blood Urea Nitrogen 21 mg/dL (7-17); Calcium 9.1 mg/dL (8.4-10.2); Carbon Dioxide 23 mmol/L (22-32); Chloride 107 mmol/L (98-107); Estimated Glomerular Filt Rate > 60 mL/min (>60); Glucose 161 mg/dL (80-110); HEMOLYSIS < 15 (0-50); Potassium 4.3 mmol/L (3.4-5.1); Sodium 137 mmol/L (137-145)
[2024-03-03 07:34] VITALS: PULSE 72; RESP 18; O2SAT 94
[2024-03-03] MEDS: ALBUTEROL/IPRATROPIUM 3 ML AMPUL INH ×2 (07:34→11:40)
[2024-03-03 08:00] VITALS: BP 110/59; PULSE 75; RESP 18; TEMP 36.1; O2SAT 97
[2024-03-03 08:27] LABS: Magnesium 2.3 mg/dL (1.6-2.3)
--- NOTE | 2024-03-03 11:26 | CM.DANOTE ---
DCP Assessment note Pt is a 63yo F here with COPD exacerbation. PCP Ayo Flowers Payer [facility] [employer] GENERATION TECHNOLOGIST reviewed EMR. Pt on room air. Per RN, doing well. Per hospitalist in morning rounds, dc today home with family. GENERATION TECHNOLOGIST met with pt in room. Lives indep with spouse in [facility]. Denies any CM needs. CM agreed to contact PCP office to update them that she would like med assistance with quitting smoking. GENERATION TECHNOLOGIST messaged OP TCM team about OP f/u after acute care stay. P: dc home today with spouse support, spouse to transport in POV. OP f/u recommended. CM team will continue to follow as needed SANJAY Desai Discharge Planning/Care Management CM Discharge Assessment Start: 03/03/24 11:25 Freq: Status: Active Protocol: Document 03/03/24 11:25 (Rec: 03/03/24 11:26 [id number]) Discharge Planning Assessment Assigned Steno Pool Supervisor SANJAY Roper DPOA/Assigned Designee Name Sukhdeep, spouse Contact Information [phone] Advance Directives? No History Provided By Patient,Medical Record Prior Living Arrangements House Household Members spouse Type of transporation used prior to Drives own vehicle admit Independent with ADL's Yes Is patient alert and oriented? Yes Barriers to Discharge No Discharge Plan Home Transportation Arrangement spouse Referrals Initiated None needed Review Status In Process Please Provide Date Initial DC 03/03/24 Assessment Was Performed Next Review Type Continued Stay Review
[2024-03-03 11:40] VITALS: PULSE 84; RESP 20; O2SAT 98
--- NOTE | 2024-03-03 12:41 | PC.NURSE ---
Pt agreeable to discharge. Patient education on COPD, stroke s/s, smoking cessation and tools, medications, follow-up appt, and worsening symptoms. IV discontinued, telemetry removed. Pt wheeled via w/c by PCT to private vehicle with spouse at approximately 1235.
== END 2024-03-03 12:40 | disposition home or self-care (01) | DRG 190 ==
LOC: ED 14:00 → AC 15:41 → ICU 16:24
PROVIDERS: Family Medicine; Admitting Provider Hospitalist; Emergency Provider Emergency Medicine; PCP Family Medicine; Referring Provider Emergency Medicine; Visit Provider Hospitalist
DX: J44.1 Chronic obstructive pulmonary disease with (acute) exacerbation (principal); J96.01 Acute respiratory failure with hypoxia; I20.1 Angina pectoris with documented spasm; I10 Essential (primary) hypertension; E78.5 Hyperlipidemia, unspecified; K21.9 Gastro-esophageal reflux disease without esophagitis; F17.200 Nicotine dependence, unspecified, uncomplicated
CPT/HCPCS: 0241U; 36415; 36600; 71045; 80048; 80053; 82805; 83605; 83735; 83880; 84484; 85025; 85610; 87040; 94640; 94762; 96365; 96367; 96368; 96375; 99285; 99291; J0696; J2919; J3475

== ENCOUNTER → 2024-04-12 09:33 | Outpatient (CLI) | payer OTHER, SELFPAY ==
[2024-03-02 14:20] VITALS: PULSE 86; RESP 25; O2SAT 100
[2024-03-02 16:31] VITALS: BMI 22.6
--- NOTE | 2024-04-12 09:35 | DI.MG.S_ITS ---
BILATERAL DIGITAL SCREENING MAMMOGRAM 3D/2D WITH CAD: 04/12/2024 CLINICAL: Routine screening. Comparison is made to exam dated: 07/11/2020 mammogram - [facility]. There are scattered areas of fibroglandular density (category b / 25%-50% glandular tissue). Current study was also evaluated with a Computer Aided Detection (CAD) system. No significant masses, calcifications, or other findings are seen in either breast. There has been no significant interval change. IMPRESSION: NEGATIVE There is no mammographic evidence of malignancy. A 1 year screening mammogram is recommended. Based on the Tyrer Cuzick model (a risk assessment model) the patient's lifetime risk is 5.4% and her 10 year risk is 2.4%. According to the ACR, ACS, and NCCN guidelines, an annual breast MRI exam along with mammogram is recommended if the patient's lifetime risk is 20% or greater. This exam was interpreted at Station ID: [id number]. NOTE: For mammograms, a report in lay terms will be sent to the patient. Approximately 15% of breast malignancies will not be visualized mammographically. In the management of a palpable breast mass, a negative mammogram must not discourage biopsy of a clinically suspicious lesion. Electronically Signed By: Amanda Harrison M.D., Ph.D. desiree/carleen:04/12/2024 22:09:35 letter sent: Normal Exam ACR BI-RADS Category 1: Negative
== END ==
PROVIDERS: PCP Family Medicine; Referring Provider Family Medicine; Visit Provider Family Medicine
DX: Z12.31 Encounter for screening mammogram for malignant neoplasm of breast (principal)
CPT/HCPCS: 77063; 77067

== ENCOUNTER → 2024-06-15 14:02 | Outpatient (CLI) | payer MEDICARE, SELFPAY ==
[2024-03-02 14:20] VITALS: PULSE 86; RESP 25; O2SAT 100
[2024-03-02 16:31] VITALS: BMI 22.6
--- NOTE | 2024-06-15 14:05 | DI.RAD.S_ITS ---
PROCEDURE: XR DEXA AXIAL SKELETON INDICATIONS: screening for osteoporosis COMPARISON: None. FINDINGS: Lumbar Spine: Bone mineral density 1.106 g/cm2, T score 0.5, normal. Left Femoral Neck: Bone mineral density 0.6 x 3 g/cm2, T score -1.8. Left Hip: Bone mineral density 0.822 g/cm2, T score -1, normal. Fracture Risk Calculation (when applicable): Glucocorticoids, smoking and rheumatoid arthritis noted 10-year fracture risk of a major osteoporotic fracture 20 percent and of a hip fracture 4.9 percent. (T score greater or equal to -1.0 to: NORMAL) (T score from -1.1 to -2.4: OSTEOPENIA) (T score less than or equal to -2.5: OSTEOPOROSIS) IMPRESSION: Osteopenia Follow-up guidelines as follows: Osteoporosis: Consider a repeat DEXA and Vertebral Fracture Assessment (VFA) exam in 2 years or sooner if medically necessary, to reassess this patient's status. Osteopenia: Consider a repeat DEXA in 2-3 years to reassess this patient's status, or if there is a new clinical indication. Normal: Consider a repeat DEXA in 5 years or sooner, or if there is a new clinical indication. All treatment decisions require clinical judgment and consideration of individual patient factors, including patient preferences, comorbidities, previous drug use, risk factors not captured in the FRAX model (e.g., frailty, falls, vitamin D deficiency, increased bone turnover, interval significant decline in bone density ) and possible under- or over-estimation of fracture risk by FRAX. In addition, the NOF Guide recommends that FDA-approved medical therapies be considered in postmenopausal women and men age >= 50 years with a: * Hip or vertebral (clinical or morphometric) fracture * T-score of <=-2.5 at the spine or hip * Ten-year fracture probability by FRAX of >= 3% for hip fracture or >=20% for major osteoporotic fracture. Dictated by: Celestine Brown M.D. on 06/15/2024 at 16:35 Approved by: Celestine Brown M.D. on 06/15/2024 at 16:36
--- NOTE | 2024-06-15 14:05 | DI.CT.S_ITS ---
PROCEDURE: CT CHEST WO CON INDICATIONS: H/o pulmonary nodule, eval for change TECHNIQUE: Noncontrast 5 mm thick sections acquired from the pulmonary apices to the posterior costophrenic angles. 1 mm lung window, 5 mm thick coronal and sagittal and 7 mm axial MIP reformats were then acquired. For radiation dose reduction, the following was used: automated exposure control, adjustment of mA and/or kV according to patient size. COMPARISON: [facility], CT, CT CHEST WITHOUT CONTRAST, 04/22/2023, 11:24. FINDINGS: Image quality: Diagnostic. Lower Neck: No enlarged lymph nodes. Thyroid: No thyroid nodules which require sonographic follow up, per consensus guidelines. Axillae: No enlarged lymph nodes. Chest Wall: Unremarkable. Bones: No visualized rib fractures. Lungs and Pleura: No pneumothorax or pleural effusions. Previously identified pulmonary nodules the largest measuring approximately 7 mm are unchanged. No new nodules are identified. Some nodules also demonstrate calcification consistent with prior granulomatous exposure. Heart: Heart size is normal. No pericardial effusion. Thoracic Vessels: The aorta and pulmonary arteries demonstrate normal size. Mediastinum and Rachel: No enlarged lymph nodes. Esophagus: No wall thickening. Minimal hiatal hernia. Upper Abdomen: Visualized upper abdomen solid organs and bowel loops appear normal. IMPRESSION: Stable appearance of previous pulmonary nodules. Dictated by: Chrystal Agrawal M.D. on 06/17/2024 at 15:44 Approved by: Chrystal Agrawal M.D. on 06/17/2024 at 15:48
== END ==
PROVIDERS: PCP Family Medicine; Referring Provider Family Medicine; Visit Provider Family Medicine
DX: Z13.820 Encounter for screening for osteoporosis (principal); M85.89 Other specified disorders of bone density and structure, multiple sites; Z72.0 Tobacco use; Z78.0 Asymptomatic menopausal state; R91.8 Other nonspecific abnormal finding of lung field
CPT/HCPCS: 71250; 77080

== ENCOUNTER → 2024-11-07 16:48 | Outpatient (CLI) | payer MEDICARE, SELFPAY ==
[2024-03-02 14:20] VITALS: PULSE 86; RESP 25; O2SAT 100
[2024-03-02 16:31] VITALS: BMI 22.6
--- NOTE | 2024-11-07 16:49 | DI.RAD.S_ITS ---
PROCEDURE: XR ABDOMEN MIN 2V INDICATIONS: abd pain, constipation TECHNIQUE: 2 views of the abdomen were acquired. COMPARISON: None. FINDINGS: Surgical changes and devices: None. Bowel: No pneumoperitoneum. Moderate fecal debris in the left colon Soft tissues: No masses; visualized solid organ contours appear normal in size. No suspicious abdominal calcifications. Bones: No suspicious bony abnormalities. IMPRESSION: Moderate fecal debris in the left colon. No obstruction Approved by: Rc Joy M.D. on 11/08/2024 at 18:52
== END ==
PROVIDERS: PCP Family Medicine; Referring Provider Family Medicine; Visit Provider Family Medicine
DX: K59.00 Constipation, unspecified (principal)
CPT/HCPCS: 74019

== ENCOUNTER → 2024-11-19 11:22 | Outpatient (CLI) | payer MEDICARE, SELFPAY ==
[2024-03-02 14:20] VITALS: PULSE 86; RESP 25; O2SAT 100
[2024-03-02 16:31] VITALS: BMI 22.6
[2024-11-19 12:45] LABS: Alanine Aminotransferase 22 IU/L (<35); Albumin 4.3 g/dL (3.5-5.0); Albumin Globulin Ratio 1.6 (1.0-2.8); Alkaline Phosphatase 87 U/L (38-126); Aspartate Aminotransferase 29 IU/L (14-36); BUN Creatinine Ratio 13.9 (6-22); Bilirubin Total 0.4 mg/dL (0.2-1.3); Blood Urea Nitrogen 11 mg/dL (7-17); Calcium 9.3 mg/dL (8.4-10.2); Carbon Dioxide 26 mmol/L (22-32); Chloride 104 mmol/L (98-107); Cholesterol 165 mg/dL (140-199); Estimated Glomerular Filt Rate > 60 mL/min (>60); Globulin 2.7 g/dL (1.7-4.1); Glucose 85 mg/dL (70-99); HDL Cholesterol 45 mg/dL (40-60); HEMOLYSIS 17 (0-50); LDL Cholesterol Calculated 88 mg/dL (<100); Potassium 4.6 mmol/L (3.4-5.1); Sodium 140 mmol/L (137-145); Triglycerides 158 mg/dL (35-150)
== END ==
PROVIDERS: PCP Family Medicine; Referring Provider Family Medicine; Visit Provider Family Medicine
DX: Z00.00 Encounter for general adult medical examination without abnormal findings (principal); E78.49 Other hyperlipidemia; I10 Essential (primary) hypertension; J43.8 Other emphysema
CPT/HCPCS: 36415; 80053; 80061

== ENCOUNTER → 2025-02-10 13:21 | Outpatient (CLI) | payer MEDICARE, SELFPAY ==
[2024-03-02 14:20] VITALS: PULSE 86; RESP 25; O2SAT 100
[2024-03-02 16:31] VITALS: BMI 22.6
--- NOTE | 2025-02-10 13:22 | DI.MRI.S_ITS ---
PROCEDURE: MR HIP LT WO CON INDICATIONS: pain left hip TECHNIQUE: Noncontrast coronal T1 spin echo and STIR through the bony pelvis. Coronal and axial T2 fast spin echo with fat saturation, sagittal T1 spin echo, and oblique axial T2 fast spin echo with fat saturation through the hip. COMPARISON: [facility], CR, XR HIP W PEL LT 2V, 01/17/2025, 11:41. FINDINGS: Image quality: Excellent. Bones and joints: Bone marrow of the pelvic ring and proximal femurs show normal signal throughout. No intraosseous lesions or fractures. No avascular necrosis of the femoral heads. The visualized lower lumbar spine appears normally aligned. Tendons and ligaments: The gluteus medius and minimus tendons appear intact, without associated muscle atrophy. Mild T2 signal elevation adjacent to the femoral insertion sites of the left gluteus medius and minimus tendons. The nearby proximal iliotibial band also appears intact. The iliopsoas tendon appears intact, without adjacent bursal fluid collections or evidence for impingement syndrome. The origin of the hamstring tendon is intact at the ischial tuberosity, as well as the associated sacrotuberous ligament. The straight and reflected heads of the rectus femoris muscle origin appear intact, as well as the conjoint tendon. The ligamentum teres appears intact where visualized. Labrum and cartilage: The acetabular labrum appears intact in the absence of intra-articular contrast. Cartilage surface of the femoral head appears of normal thickness. The alpha angle of the femur is within normal limits at less than 55 degrees. Soft tissues: Visualized muscles demonstrate normal bulk and internal signal. Quadratus femoris muscle demonstrates no internal edema to suggest ischiofemoral impingement. The proximal sciatic neurovascular bundle appears normal adjacent to the hamstring tendons. No free pelvic fluid. Bladder wall thickness is normal. Genitourinary structures and bowel loops appear normal where visualized. IMPRESSION: 1. Insertional tendinitis of the left gluteus medius and minimus tendons. Dictated by: Yu Wright M.D. on 02/11/2025 at 11:46 Approved by: Yu Wright M.D. on 02/11/2025 at 11:48
== END ==
LOC: MRI 13:21
PROVIDERS: PCP Family Medicine; Referring Provider Orthopaedic Surgery Adult Reconstructive Orthopaedic Surgery; Visit Provider Orthopaedic Surgery Adult Reconstructive Orthopaedic Surgery
DX: M76.02 Gluteal tendinitis, left hip (principal); M25.552 Pain in left hip
CPT/HCPCS: 73721